=== PATIENT | male | born 1980 | race Caucasian/White ===

== ENCOUNTER 2017-10-18 18:45 | Observation (INO) | payer BC ==
[2017-10-18] MEDS ORDERED: ONDANSETRON 4 MG/2 ML VIAL ONE (19:38)
[2017-10-18] MEDS ORDERED: FENTANYL CITR 100 MCG/2 ML ONE (19:38)
[2017-10-18] MEDS ORDERED: Ringers Lactate 1,000 ML IV ONE (19:54)
[2017-10-18 20:09] LABS: Absolute Lymphocytes (CBC) 3.3 K/uL (0.7-4.9); Absolute Neutrophil 13.5 K/uL (1.8-8.0); Basophils % 0.2 % (0-1.3); Eosinophils % 1.3 % (0-4.4); Lymphocytes % 18.3 % (15.3-44.8); MCH 33.5 pg (27.0-35.0); MCV 98.7 fL (80-100); MPV 8.4 fL (7.6-11.3); Monocytes % 5.4 % (3.3-12.3); RBC Red Blood Cell Count 4.76 M/uL (4.33-5.43)
[2017-10-18 20:23] LABS: ALT/SGPT 46 U/L (12-78); AST/SGOT 30 U/L (15-37); Albumin 3.8 g/dL (3.4-5.0); Alkaline Phosphatase 98 U/L (45-117); BUN Blood Urea Nitrogen 11 mg/dL (7-18); Bicarbonate 21 mmol/L (21-32); Bilirubin Direct < 0.1 mg/dL (0-0.2); Bilirubin Total 0.3 mg/dL (0.2-1.0); Creatine Phosphokinase 57 U/L (39-308); Glucose Level 99 mg/dL (74-106); Lipase 214 U/L (73-393); Potassium 3.7 mmol/L (3.5-5.1); Protein, Total 7.8 g/dL (6.4-8.2); Sodium Level 137 mmol/L (136-145)
--- NOTE | 2017-10-18 22:11 | RAD REPORT ---
EXAM DESCRIPTION: CT - Abdomen Pelvis W Contrast - 10/18/2017 9:30 pm CLINICAL HISTORY: Right lower quadrant pain, left lower quadrant pain COMPARISON: None. TECHNIQUE: Biphasic, helical CT imaging of the abdomen and pelvis was performed following 100 ml non -ionic IV contrast. Oral contrast was given. All CT scans are performed using dose optimization technique as appropriate and may include automated exposure control or mA/KV adjustment according to patient size. FINDINGS: No suspicious findings in the lung bases. The liver, spleen, and pancreas show no suspicious findings. Gallbladder and biliary tree are also wi thout suspicious finding. Symmetric renal function is seen with no hydronephrosis or suspicious renal mass. No pyelonephritis o r acute renal parenchymal process. Partially filled urinary bladder shows no suspicious finding. No gastric dilatation or gastric wall thickening. No small bowel abnormality. No dilated colon or foc al colon wall thickening. The appendix is borderline at 8-9 mm. There is no air within the lumen and no appendicolith. No periappendiceal inflammatory stranding. Minimal diverticulosis is present withou t diverticulitis. No free air, free fluid or inflammatory stranding. No mass or bulky lymphadenopathy. A small fat o nly umbilical hernia present. Fat extends into the origin of the right inguinal canal. No adrenal abn ormality. No suspicious bony findings. IMPRESSION: Appendix is borderline at 8- 9 mm. No appendicolith or periappendiceal inflammatory stra nding. Acute appendicitis is unlikely ; however, correlation is needed with clinical presentation and laboratory findings. Patient can be monitored with follow-up imaging as warranted. No other acute GI finding. No acute abnormality.
--- NOTE | 2017-10-18 22:45 | EDPHYS ---
Physician Documentation [facility] Name: Jonathon Zamudio Age: 36 yrs Sex: Male : 1980 Arrival Date: 10/18/2017 Time: 18:49 Bed 19 Private MD: None, None ED Physician Donovan Reardon HPI: 10/18 22:41 This 36 yrs old Male presents to ER via Wheelchair with complaints of gs Abdominal Pain. 22:41 The patient presents with abdominal pain in the lower abdomen. Onset: The gs symptoms/episode began/occurred today. The symptoms do not radiate. Associated signs and symptoms: Pertinent positives: nausea, Pertinent negatives: diarrhea, vomiting. The symptoms are described as crampy. Modifying factors: The symptoms are alleviated by nothing, the symptoms are aggravated by alcohol. Severity of pain: At its worst the pain was severe in the emergency department the pain has improved markedly. The patient has experienced a previous episode. Historical: - Allergies: 19:06 No Known Allergies; tl2 - Home Meds: 19:06 None [Active]; tl2 - PMHx: 19:06 None; tl2 - PSHx: 19:06 Hernia repair; tl2 - Immunization history:: Adult Immunizations up to date. - Social history:: Smoking status: Patient uses tobacco products, smokes one pack cigarettes per day. - Ebola Screening: : No symptoms or risks identified at this time. ROS: 22:41 All other systems are negative. gs Exam: 22:41 Head/Face: Normocephalic, atraumatic. Eyes: Pupils equal round and reactive to light, gs extra-ocular motions intact. Lids and lashes normal. Conjunctiva and sclera are non-icteric and not injected. Cornea within normal limits. Periorbital areas with no swelling, redness, or edema. ENT: Nares patent. No nasal discharge, no septal abnormalities noted. Tympanic membranes are normal and external auditory canals are clear. Oropharynx with no redness, swelling, or masses, exudates, or evidence of obstruction, uvula midline. Mucous membranes moist. Neck: Trachea midline, no thyromegaly or masses palpated, and no cervical lymphadenopathy. Supple, full range of motion without nuchal rigidity, or vertebral point tenderness. No Meningismus. Chest/axilla: Normal chest wall appearance and motion. Nontender with no deformity. No lesions are appreciated. Cardiovascular: Regular rate and rhythm with a normal S1 and S2. No gallops, murmurs, or rubs. Normal PMI, no JVD. No pulse deficits. Respiratory: Lungs have equal breath sounds bilaterally, clear to auscultation and percussion. No rales, rhonchi or wheezes noted. No increased work of breathing, no retractions or nasal flaring. Back: No spinal tenderness. No costovertebral tenderness. Full range of motion. Male : Normal genitalia with no discharge or lesions. Skin: Warm, dry with normal turgor. Normal color with no rashes, no lesions, and no evidence of cellulitis. MS/ Extremity: Pulses equal, no cyanosis. Neurovascular intact. Full, normal range of motion. Neuro: Awake and alert, GCS 15, oriented to person, place, time, and situation. Cranial nerves II-XII grossly intact. Motor strength 5/5 in all extremities. Sensory grossly intact. Cerebellar exam normal. Normal gait. 22:41 Constitutional: The patient appears alert, awake, uncomfortable. 22:41 Abdomen/GI: Palpation: moderate abdominal tenderness, in the suprapubic area and right lower quadrant, rebound tenderness, is not appreciated. Vital Signs: 19:06 BP 113 / 73; Pulse 68; Resp 18; Temp 97.8(O); Pulse Ox 99% on R/A; Weight 99.79 kg; tl2 Height 6 ft. 3 in. (190.50 cm); Pain 8/10; 20:45 BP 130 / 86; Pulse 75; Resp 18; Pulse Ox 98% ; ea 21:31 BP 141 / 81; Pulse 81; Resp 18; Pulse Ox 99% ; ea 23:00 BP 126 / 83; Pulse 84; Resp 18; Pulse Ox 99% ; ea 10/19 00:30 BP 127 / 79; Pulse 80; Resp 18; Temp 98; Pulse Ox 99% ; Pain 0/10; ea 10/18 19:06 Body Mass Index 27.50 (99.79 kg, 190.50 cm) tl2 MDM: 10/18 19:16 Patient medically screened. gs 22:41 Differential diagnosis: appendicitis, bowel obstruction, non-specific abd pain, gs pancreatitis. Data reviewed: vital signs, nurses notes. Response to treatment: the patient's symptoms have mildly improved after treatment, and as a result, I will admit patient. Physician consultation: Miguel Hinkle MD and will see patient in inpatient room. 10/18 19:33 Order name: Basic Metabolic Panel; Complete Time: 22:14 10/18 19:33 Order name: CBC with Diff; Complete Time: 20:19 10/18 19:33 Order name: Hepatic Function; Complete Time: 22:14 10/18 19:33 Order name: Lipase; Complete Time: 22:14 10/18 19:33 Order name: Urine Microscopic Only 10/18 19:33 Order name: CPK; Complete Time: 22:14 10/18 19:33 Order name: CT Abd/Pelvis - W/Contrast; Complete Time: 22:14 10/18 22:51 Order name: Liver (Hepatic) Function EDMT 10/18 22:51 Order name: CBC with Automated Diff EDMT 10/18 22:51 Order name: CBC with Automated Diff EDMS 10/19 00:00 Order name: Urine Dipstick--Ancillary (enter results) 10/19 00:04 Order name: Urine Dipstick-Ancillary EDMT 10/18 19:33 Order name: IV Saline Lock; Complete Time: 19:54 10/18 19:33 Order name: Labs collected and sent; Complete Time: 19:54 10/18 19:33 Order name: Urine Dipstick-Ancillary (obtain specimen); Complete Time: 23:08 10/18 22:51 Order name: NPO EDMS Administered Medications: 19:43 Drug: fentaNYL (PF) 25 mcg Route: IVP; Site: right antecubital; ea 20:15 Follow up: Response: No adverse reaction; Pain is decreased ea 19:43 Drug: Zofran 4 mg Route: IVP; Site: right antecubital; ea 20:15 Follow up: Response: No adverse reaction ea 20:05 Drug: Lactated Ringers Solution 1000 ml Route: IV; Rate: 1000 bolus; Site: right ea antecubital; 22:30 Follow up: Response: No adverse reaction; IV Intake: 1000ml ea 21:13 Drug: fentaNYL (PF) 50 mcg Route: IVP; Site: right antecubital; ea 21:45 Follow up: Response: No adverse reaction; Pain is decreased ea 23:07 Drug: morphine 4 mg Route: IVP; Site: right antecubital; ea 10/19 00:00 Follow up: Response: No adverse reaction; Pain is decreased ea Disposition: 10/18/17 22:44 Hospitalization ordered by Miguel Hinkle for Observation. Preliminary diagnosis is Lower abdominal pain, unspecified. - Bed requested for Telemetry/MedSurg (observation). - Status is Observation. ea - Condition is Stable. - Problem is new. - Symptoms have improved. UTI on Admission? No Signatures: Dispatcher [employer] EDMS Ana Dixon RN RN Nikki Chapin RN RN tl2 Shanae Becerra RN RN Donovan Sandy MD MD gs Corrections: (The following items were deleted from the chart) 00:12 10/18 22:44 Hospitalization Ordered by Miguel Hinkle MD for Observation. Preliminary kl diagnosis is Lower abdominal pain, unspecified. Bed requested for Telemetry/MedSurg (observation). Status is Observation. Condition is Stable. Problem is new. Symptoms have improved. UTI on Admission? No. gs 10/19 00:46 00:12 10/18/2017 22:44 Hospitalization Ordered by Miguel Hinkle MD for Observation. ea Preliminary diagnosis is Lower abdominal pain, unspecified. Bed requested for Telemetry/MedSurg (observation). Status is Observation. Condition is Stable. Problem is new. Symptoms have improved. UTI on Admission? No. kl
--- NOTE | 2017-10-18 22:45 | ER ---
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 Denies vomiting or diarrhea. 19:05 Transition of care: patient was not received from another setting of care. Onset of tl2 symptoms was October 18, 2017 at 16:00. Risk Assessment: Do you want to hurt yourself or someone else? Patient reports no desire to harm self or others. Initial Sepsis Screen: Does the patient meet any 2 criteria? No. Patient's initial sepsis screen is negative. Does the patient have a suspected source of infection? No. Patient's initial sepsis screen is negative. Care prior to arrival: None. 19:05 Method Of Arrival: Wheelchair tl2 19:05 Acuity: ARIANE 3 tl2 Triage Assessment: 19:06 General: Appears in no apparent distress. uncomfortable, Behavior is cooperative, tl2 appropriate for age, anxious. Pain: Complains of pain in right lower quadrant and left lower quadrant Pain does not radiate. Pain currently is 8 out of 10 on a pain scale. Quality of pain is described as sharp, Is intermittent. Neuro: Level of Consciousness is awake, alert, obeys commands, Oriented to person, place, time, situation. Cardiovascular: Denies chest pain. Respiratory: Airway is patent Respiratory effort is even, unlabored, Respiratory pattern is regular, symmetrical. GI: Abdomen is non-distended, Patient currently denies diarrhea, vomiting. Historical: - Allergies: 19:06 No Known Allergies; tl2 - Home Meds: 19:06 None [Active]; tl2 - PMHx: 19:06 None; tl2 - PSHx: 19:06 Hernia repair; tl2 - Immunization history:: Adult Immunizations up to date. - Social history:: Smoking status: Patient uses tobacco products, smokes one pack cigarettes per day. - Ebola Screening: : No symptoms or risks identified at this time. Screenin:20 Abuse screen: Denies threats or abuse. Nutritional screening: No deficits noted. ea Tuberculosis screening: No symptoms or risk factors identified. Fall Risk None identified. Assessment: 19:19 General: Appears uncomfortable, Behavior is calm, cooperative, appropriate for age, ea Smells of alcohol. Pain: Complains of pain in right lower quadrant and left lower quadrant Pain currently is 7 out of 10 on a pain scale. Quality of pain is described as aching. Neuro: Level of Consciousness is awake, alert, obeys commands, Oriented to person, place, time, situation. Cardiovascular: Patient's skin is warm and dry. Respiratory: Airway is patent Respiratory effort is even, unlabored, Respiratory pattern is regular, symmetrical, Breath sounds are clear bilaterally. GI: Bowel sounds present X 4 quads. Abdomen is tender to palpation in right lower quadrant and left lower quadrant. : No signs and/or symptoms were reported regarding the genitourinary system. Derm: Skin is dry, Skin is flushed, Skin temperature is warm. Musculoskeletal: Circulation, motion, and sensation intact. 20:43 Reassessment: Patient and/or family updated on plan of care and expected duration. Pain ea level reassessed. Patient is alert, oriented x 3, equal unlabored respirations, skin warm/dry/pink. 21:00 Reassessment: Patient and/or family updated on plan of care and expected duration. Pain ea level reassessed. Patient is alert, oriented x 3, equal unlabored respirations, skin warm/dry/pink. 22:19 Reassessment: Patient and/or family updated on plan of care and expected duration. Pain ea level reassessed. Patient is alert, oriented x 3, equal unlabored respirations, skin warm/dry/pink. 23:13 Reassessment: Patient and/or family updated on plan of care and expected duration. Pain ea level reassessed. Patient is alert, oriented x 3, equal unlabored respirations, skin warm/dry/pink. 10/19 00:34 Reassessment: Patient and/or family updated on plan of care and expected duration. Pain ea level reassessed. Patient is alert, oriented x 3, equal unlabored respirations, skin warm/dry/pink. Report called to Receiving nurse. Vital Signs: 10/18 19:06 BP 113 / 73; Pulse 68; Resp 18; Temp 97.8(O); Pulse Ox 99% on R/A; Weight 99.79 kg; tl2 Height 6 ft. 3 in. (190.50 cm); Pain 8/10; 20:45 BP 130 / 86; Pulse 75; Resp 18; Pulse Ox 98% ; ea 21:31 BP 141 / 81; Pulse 81; Resp 18; Pulse Ox 99% ; ea 23:00 BP 126 / 83; Pulse 84; Resp 18; Pulse Ox 99% ; ea 10/19 00:30 BP 127 / 79; Pulse 80; Resp 18; Temp 98; Pulse Ox 99% ; Pain 0/10; ea 10/18 19:06 Body Mass Index 27.50 (99.79 kg, 190.50 cm) tl2 ED Course: 10/18 18:49 Patient arrived in ED. mr 18:49 None, None is Private Physician. mr 19:02 Shanae Becerra, RN is Primary Nurse. ea 19:06 Triage completed. tl2 19:06 Arm band placed on right wrist. tl2 19:07 Donovan Reardon MD is Attending Physician. gs 19:08 Patient has correct armband on for positive identification. Bed in low position. Call tl2 light in reach. Side rails up X 1. Adult w/ patient. 21:[address] via wheelchair. nj 21:30 CT Abd/Pelvis - W/Contrast In Process Unspecified. EDMS 22:44 Miguel Hinkle MD is Hospitalizing Provider. 10/19 00:33 No provider procedures requiring assistance completed. Patient admitted, IV remains in ea place. Administered Medications: 10/18 19:43 Drug: fentaNYL (PF) 25 mcg Route: IVP; Site: right antecubital; ea 20:15 Follow up: Response: No adverse reaction; Pain is decreased ea 19:43 Drug: Zofran 4 mg Route: IVP; Site: right antecubital; ea 20:15 Follow up: Response: No adverse reaction ea 20:05 Drug: Lactated Ringers Solution 1000 ml Route: IV; Rate: 1000 bolus; Site: right ea antecubital; 22:30 Follow up: Response: No adverse reaction; IV Intake: 1000ml ea 21:13 Drug: fentaNYL (PF) 50 mcg Route: IVP; Site: right antecubital; ea 21:45 Follow up: Response: No adverse reaction; Pain is decreased ea 23:07 Drug: morphine 4 mg Route: IVP; Site: right antecubital; ea 10/19 00:00 Follow up: Response: No adverse reaction; Pain is decreased ea Intake: 10/18 22:30 IV: 1000ml; Total: 1000ml. ea Outcome: 22:44 Decision to Hospitalize by Provider. 10/19 00:34 Instructed on the need for admit. ea 00:37 Admitted to Med/surg accompanied by tech, room 407, Report called to Receiving nurse ea on fourth floor. 00:37 Condition: stable 00:46 Patient left the ED. ea Signatures: Dispatcher [employer] EDWV Karin Brooks Taylor RN RN tl2 Mariano Braun Elena, RN RN Donovan Sandy MD MD
[2017-10-18] MEDS ORDERED: MORPHINE 4 MG/ML SYR IV PRN (22:47)
[2017-10-18] MEDS ORDERED: ACETAMINOPHEN 500 MG TAB PO PRN (22:47)
[2017-10-18] MEDS ORDERED: ONDANSETRON 4 MG/2 ML VIAL IV PRN (22:47)
[2017-10-18] MEDS: D5 0.45 NS 1,000 ML IV SCH (23:00)
[2017-10-19 00:04] LABS: Urine Blood TRACE (NEG); Urine Glucose NEGATIVE (NEG); Urine Protein NEGATIVE (NEG); Urine pH 6.5 (5.0-7.0)
[2017-10-19 00:48] LABS: Urine Bacteria <20 /HPF (NONE SEEN); Urine Culture Reflex Order NOT NEEDED; Urine RBC NONE SEEN /HPF (NONE SEEN)
[2017-10-19 00:55] LABS: Albumin 3.6 g/dL (3.4-5.0); Bilirubin Direct 0.1 mg/dL (0-0.2); Bilirubin Total 0.5 mg/dL (0.2-1.0); Protein, Total 7.1 g/dL (6.4-8.2)
[2017-10-19 01:12] VITALS: BMI 27.6
[2017-10-19] MEDS: D5 0.45 NS 1,000 ML IV SCH ×2 (01:12→06:05)
[2017-10-19] MEDS ORDERED: CEFOXITIN SODIUM 2 GM/VIAL ONE (01:17)
[2017-10-19] MEDS ORDERED: NA CHLORIDE 0.9% 200 ML ONE (01:23)
[2017-10-19 01:44] VITALS: O2SAT 100
[2017-10-19 04:42] LABS: Absolute Lymphocytes (CBC) 4.4 K/uL (0.7-4.9); Absolute Monocytes 1.2 K/uL (0.1-1.3); Absolute Neutrophil 9.1 K/uL (1.8-8.0); Basophils % 0.6 % (0-1.3); Eosinophils % 1.7 % (0-4.4); Hematocrit 43.5 % (39.6-49.0); Lymphocytes % 29.2 % (15.3-44.8); MCH 33.5 pg (27.0-35.0); MCV 96.3 fL (80-100); MPV 8.5 fL (7.6-11.3); RBC Red Blood Cell Count 4.51 M/uL (4.33-5.43)
[2017-10-19] MEDS: CEFOXITIN 1 GM in NA CHLORIDE 0.9% 100 ML IVPB SCH ×3 (06:00)
[2017-10-19 08:28] VITALS: BP 129/60; TEMP 97.7
[2017-10-19] MEDS ORDERED: CEFOXITIN/SWI 1gm 1 GM/10 ML SYR IV SCH (12:00)
--- NOTE | 2017-10-19 16:41 | HP ---
Date of Admission: 10/18/2017 Brief History Of Present Illness: The patient is a 36-year-old man, who presents to the [facility] with approximately 1-day history of vague periumbilical abdominal pain. He states that the pa in was sharp, stabbing, and located primarily in the periumbilical region with some minimal movement to the right side of the periumbilical region, but no radiation to the right lower quadrant. He wai tionally had some radiation to the left lower quadrant as well in a belt-like distribution. He had s ome nausea. No vomiting. No change in bowel or bladder habits. No diarrhea. No recent food exposu res. No travel outside the country and no sick contacts he is aware of. He states that the pain cam e on and then initially went away. He went and drank a few beers and the pain got significantly wors e. He says, he stated, he had some lightheadedness and felt pale and drawn at that time and as such he had decided to come to the emergency room with the above-stated complaints. Past Medical History: Negative. Past Surgical History: He has had a lumbar surgery, diskectomy, and laminectomy, and he has had a le ft inguinal hernia repair x2. Allergies: NO KNOWN DRUG ALLERGIES. Medications: None. Social History: He has a 20+ pack-year smoking history. He drinks a case of beer a week. He denies recreational drug use. Review of Systems: A 10-point review of systems other than HPI, denies. Currently, he is completely pain-free and his s ymptoms have completely resolved by his description. He has had no fever, no chills, no other compla ints. Physical Examination: Vital Signs: At the time of my examination, his BMI is 27.6. His vital signs are a blood pressure o f 106/58, pulse is 70, respiratory rate 20, temperature 97.2. General: He is awake, alert, oriented. Psychiatric: He is appropriate, conversive. HEENT: Normocephalic. Sclerae anicteric. Mucous members moist. Oropharynx clear. Neck: Supple. No JVD. Chest: Normal expansion and excursion. Cardiovascular: Regular rate and rhythm. Pulmonary: Clear to auscultation bilaterally. Abdomen: Soft with no tenderness. No rebound. No guarding. No focal peritonitis. Negative psoas sign. He essentially has a benign abdominal exam at this time with no acute findings. Extremities: No clubbing, cyanosis, or edema. Skin: Warm and dry. Laboratory Data: Reveals a white blood cell count of 15.1 down from 18.0. On admission, his hemoglo bin 15.1 over hematocrit of 43.5, platelet count is 230. His neutrophils are normal at 60.5 today. His lytes were reviewed on admission and did not have any outstanding concerning findings. He had a CT scan performed of the abdomen and pelvis on admission which was officially read as, appendix is cl rderline at 8 to 9 mm. No appendicolith or periappendiceal inflammatory stranding. Acute appendicit is is unlikely; however, correlation with clinical presentation and laboratory findings. No acute ot her or GI findings. Assessment And Plan: This is a 36-year-old male who presents with signs and symptoms of possible ear ly acute appendicitis. 1.IV fluid hydration. 2.N.p.o. status. 3.Antibiotic coverage with Levaquin and Flagyl. 4.I have explained the risks, benefits, and alternatives of a laparoscopic, possible open appendecto my including but not limited to bleeding, infection, damage to the surrounding tissue, need for furth er operating procedures. The patient was asked if there are additional options. We have instructed him that antibiotics are an option and as such he has chosen to do antibiotic and nonoperative manage ment as he states he has a family member, I believe grandfather/uncle, he needs to see before he perh aps will pass away, and as such he does not wish surgical intervention and stating as he has no sympt oms whatsoever at this point is completely pain-free. He would like to continue the antibiotic. The refore, I have decided to give him 7 days of antibiotics and no pain medication so that should his sy mptoms resume, he has been instructed to seek an emergency room and surgical intervention as soon as possible, and call [phone] if necessary. The patient displayed understanding of above stated plan and agrees to proceed as indicated. CARLI/CHAN Voice ID: [id number]
== END 2017-10-19 08:56 | disposition home or self-care (01) ==
LOC: ER 18:45 → ERHOLD 23:31 → 4TH 10-19 00:19
PROVIDERS: ADMIT Surgery; ATTEND Surgery
DX: R10.9 Unspecified abdominal pain (principal); F17.210 Nicotine dependence, cigarettes, uncomplicated
CPT/HCPCS: 36415; 74177; 80048; 80076; 81003; 81015; 82550; 83690; 85025; 96374; 96375; 99285; G0378; J0694; J2405; J3010; Q9967

== ENCOUNTER 2018-11-17 17:35 | Observation (INO) | payer BC ==
[2018-11-17] MEDS ORDERED: ONDANSETRON 4 MG/2 ML VIAL ONE (17:49)
[2018-11-17] MEDS ORDERED: NA CHLORIDE 0.9% 1,000 ML ONE (17:49)
[2018-11-17] MEDS ORDERED: MORPHINE 4 MG/ML SYR ONE ×3 (17:49→21:01)
[2018-11-17 18:58] LABS: Absolute Lymphocytes (CBC) 3.7 K/uL (0.7-4.9); Basophils % 0.6 % (0-1.3); Hematocrit 43.6 % (39.6-49.0); Lymphocytes % 20.4 % (15.3-44.8); MPV 8.6 fL (7.6-11.3); RBC Red Blood Cell Count 4.47 M/uL (4.33-5.43)
[2018-11-17 19:16] LABS: ALT/SGPT 38 U/L (12-78); AST/SGOT 23 U/L (15-37); Albumin 3.6 g/dL (3.4-5.0); Alkaline Phosphatase 94 U/L (45-117); BUN Blood Urea Nitrogen 12 mg/dL (7-18); Bicarbonate 21 mmol/L (21-32); Bilirubin Direct < 0.1 mg/dL (0-0.2); Bilirubin Total 0.3 mg/dL (0.2-1.0); Glucose Level 104 mg/dL (74-106); Lipase 313 U/L (73-393); Protein, Total 6.5 g/dL (6.4-8.2); Sodium Level 138 mmol/L (136-145)
[2018-11-17 19:39] LABS: Urine Blood NEGATIVE (NEG); Urine Glucose NEGATIVE (NEG); Urine Protein NEGATIVE (NEG); Urine Specific Gravity 1.015 (1.005-1.030); Urine pH 5.5 (5.0-7.0)
--- NOTE | 2018-11-17 19:55 | RAD REPORT ---
EXAM DESCRIPTION: CT - Abdomen Pelvis W Contrast - 11/17/2018 7:36 pm CLINICAL HISTORY: RLQ PAINprior history of appendicitis treated with antibiotic therapy COMPARISON: September 2017 TECHNIQUE: Biphasic, helical CT imaging of the abdomen and pelvis was performed following 100 ml non -ionic IV contrast. No oral contrast administered. All CT scans are performed using dose optimization technique as appropriate and may include automated exposure control or mA/KV adjustment according to patient size. FINDINGS: No suspicious findings in the lung bases. The liver, spleen, and pancreas show no suspicious findings. Gallbladder and biliary tree are also wi thout suspicious finding. Symmetric renal function is seen with no hydronephrosis or suspicious renal mass. No pyelonephritis o r acute parenchymal process. No bladder abnormalities. No adrenal abnormalities. No gastric dilatation or gastric wall thickening. No dilated small bowel loops. Patient has minimal s igmoid diverticulosis without diverticulitis. No colon wall thickening or mass. No thickening at the tip of the cecum. The appendix is 9 mm in diameter. [place] of the appendix appear mildly prominent. Th e appendix appears the same as seen on the September 2017 study. No periappendiceal stranding. No append icolith. No free air, free fluid or inflammatory stranding. No mass or bulky lymphadenopathy. Minimal fat o nly umbilical hernia present. Fat extends into the right inguinal canal similar to the prior study. No congestion or edema in this small or early hernia. No suspicious bony findings. IMPRESSION: The appendix is 9 mm which is slightly enlarged and the [place] are mildly prominent. Ther e is no surrounding inflammatory stranding. The appearance of the appendix matches the September 2017 [address]y. As noted as well on the prior study, acute appendicitis is unlikely, even more so given the matching appearance to the study 1 year earlier. It would be an unusual that a recurrent appendicitis would alvarenga ve the same appearance. Correlation is needed with any clinical or laboratory findings of appendicitis. No other right lower quadrant abnormality. No other abnormality seen to explain right lower quadrant pain.
[2018-11-17] MEDS ORDERED: PIPER/TAZO/NS 3.375gm 3.375 GM/100 ML BAG ONE (20:27)
--- NOTE | 2018-11-17 20:31 | ER ---
Nurse's Notes [facility] Name: Jonathon Zamudio Age: 38 yrs Sex: Male : 1980 Arrival Date: 11/17/2018 Time: 17:37 Bed 23 Private MD: Diagnosis: Acute appendicitis Presentation: 11/17 17:37 Presenting complaint: Patient states: severe abd pain, started this morning but got la1 much worse in the last couple hours, had appendicitis last year but opted to try abx. Transition of care: patient was not received from another setting of care. Onset of symptoms was November 17, 2018. Risk Assessment: Do you want to hurt yourself or someone else? Patient reports no desire to harm self or others. Initial Sepsis Screen: Does the patient meet any 2 criteria? No. Patient's initial sepsis screen is negative. Does the patient have a suspected source of infection? No. Patient's initial sepsis screen is negative. Care prior to arrival: None. 17:37 Method Of Arrival: Ambulatory la1 17:37 Acuity: ARIANE 2 la1 Historical: - Allergies: 17:38 No Known Allergies; la1 - PMHx: 17:38 None; la1 - PSHx: 17:38 Hernia repair; la1 - Immunization history:: Adult Immunizations up to date. - Social history:: Smoking status: Patient uses tobacco products, smokes one pack cigarettes per day. - Ebola Screening: : No symptoms or risks identified at this time. Screenin:57 Abuse screen: Denies threats or abuse. Denies injuries from another. Nutritional mg2 screening: No deficits noted. Tuberculosis screening: No symptoms or risk factors identified. Fall Risk IV access (20 points). Assessment: 17:50 General: Appears uncomfortable, Behavior is cooperative, restless. mg2 17:50 Pain: Complains of pain in abdomen Pain does not radiate. Pain currently is 8 out of 10 mg2 on a pain scale. Neuro: Level of Consciousness is awake, alert, obeys commands, Oriented to person, place, time, situation. Cardiovascular: Capillary refill < 3 seconds Patient's skin is warm and dry. Respiratory: Airway is patent Respiratory effort is even, unlabored, Respiratory pattern is regular, symmetrical. GI: Bowel sounds present X 4 quads. Abdomen is tender to palpation in right lower quadrant. : No signs and/or symptoms were reported regarding the genitourinary system. EENT: No signs and/or symptoms were reported regarding the EENT system. Derm: Skin is intact, is healthy with good turgor, Skin is pink, warm \T\ dry. normal. Musculoskeletal: Circulation, motion, and sensation intact. Capillary refill < 3 seconds. 17:56 Reassessment: patient completed drinking the contrast. it infrastructure specialist informed. mg2 19:04 Reassessment: patient complained of abdominal pain. provider informed and ordered mg2 another dose of pain medicine. 19:34 Reassessment: patient sent to ct scan via wheelchair. mg2 20:02 Reassessment: Patient states feeling better. mg2 Vital Signs: 17:38 BP 131 / 91; Pulse 95; Resp 16; Temp 98.1; Pulse Ox 100% on R/A; Weight 99.79 kg; la1 Height 6 ft. 3 in. (190.50 cm); 19:05 BP 127 / 87; Pulse 87; Resp 18; Pulse Ox 98% on R/A; mg2 20:02 BP 125 / 80; Pulse 76; Resp 18; Pulse Ox 96% on R/A; mg2 17:38 Body Mass Index 27.50 (99.79 kg, 190.50 cm) la1 ED Course: 17:37 Patient arrived in ED. la1 17:37 Triage completed. la1 17:38 Arm band placed on right wrist. la1 17:39 Merlin Caruso NP is PHCP. pm1 17:40 Davida Stephens MD is Attending Physician. pm1 17:41 Caleb Aaron RN is Primary Nurse. mg2 17:46 No provider procedures requiring assistance completed. Inserted saline lock: 20 gauge mg2 in right antecubital area, using aseptic technique. Blood collected. 17:59 Patient has correct armband on for positive identification. Pulse ox on. NIBP on. Door mg2 closed. Warm blanket given. 19:37 CT completed. Patient tolerated procedure well. Patient moved back from CT. mw3 19:39 CT Abd/Pelvis - PO and IV Contrast In Process Unspecified. EDMS 20:29 Rajeev Aguilar MD is Hospitalizing Provider. pm1 21:49 Patient admitted, IV remains in place. mg2 Administered Medications: 17:54 Drug: NS 0.9% 1000 ml Route: IV; Rate: 1000 ml; Site: right antecubital; mg2 19:00 Follow up: Response: No adverse reaction; IV Status: Completed infusion; IV Intake: mg2 1000ml 17:55 Drug: morphine 4 mg Route: IVP; Site: right antecubital; mg2 18:25 Follow up: Response: No adverse reaction; Marked relief of symptoms mg2 17:55 Drug: Zofran 4 mg Route: IVP; Site: right antecubital; mg2 18:25 Follow up: Response: No adverse reaction; Marked relief of symptoms mg2 18:52 Drug: morphine 4 mg Route: IVP; Site: right antecubital; mg2 19:15 Follow up: Response: No adverse reaction; Marked relief of symptoms mg2 20:49 Drug: Zosyn 3.375 grams Route: IVPB; Infused Over: 60 mins; Site: right antecubital; mg2 21:15 Follow up: Response: No adverse reaction; IV Status: Completed infusion mg2 21:06 Drug: morphine 4 mg Route: IVP; Site: right antecubital; mg2 21:30 Follow up: Response: No adverse reaction; Marked relief of symptoms mg2 21:07 Drug: D5-1/2 NS 1000 ml Route: IV; Rate: 125 ml/hr; Site: right antecubital; mg2 21:45 Follow up: Response: No adverse reaction; IV Status: Infusion continued upon admission mg2 Intake: 19:00 IV: 1000ml; Total: 1000ml. mg2 Outcome: 20:30 Decision to Hospitalize by Provider. pm1 21:49 Admitted to Tele accompanied by tech, via wheelchair, room 409, with chart, Report mg2 called to MARTY Hernandez 21:49 Condition: stable 21:49 Instructed on the need for admit, Demonstrated understanding of instructions. 21:50 Patient left the ED. mg2 Signatures: Dispatcher [employer] EDMS Eduardo Gamez RN RN la1 Merlin Caruso, MAKAYLA SENIOR CLINICAL PROJECT MANAGER pm1 Caleb Aaron RN RN mg2 Roxane Agarwal mw3
--- NOTE | 2018-11-17 20:32 | EDPHYS ---
Physician Documentation [facility] Name: Jonathon Zamudio Age: 38 yrs Sex: Male : 1980 Arrival Date: 11/17/2018 Time: 17:37 Bed 23 Private MD: ED Physician Davida Stephens HPI: 11/17 18:00 This 38 yrs old Male presents to ER via Ambulatory with complaints of pm1 Abdominal Pain. 18:00 The patient presents with abdominal pain right lower quadrant. Onset: The pm1 symptoms/episode began/occurred today. The symptoms do not radiate. Associated signs and symptoms: Pertinent negatives: nausea, vomiting, and diarrhea, chest pain, dysuria, fever, shortness of breath, testicular pain. The symptoms are described as sharp. Modifying factors: The symptoms are alleviated by nothing, the symptoms are aggravated by movement, walking. Severity of pain: in the emergency department the pain is actually worse. The patient has experienced a previous episode, approximately 1 years ago, and the symptoms today are exactly the same, but worse. Was admitted for appendicitis but had to leave prior to surgery recommended by Dr. Hinkle to see his dying grandfather. Was given antibiotics and the patient did not have any abdominal pain until today . The patient has not recently seen a physician. Historical: - Allergies: 17:38 No Known Allergies; la1 - PMHx: 17:38 None; la1 - PSHx: 17:38 Hernia repair; la1 - Immunization history:: Adult Immunizations up to date. - Social history:: Smoking status: Patient uses tobacco products, smokes one pack cigarettes per day. - Ebola Screening: : No symptoms or risks identified at this time. ROS: 18:00 Constitutional: Negative for fever, chills, and weight loss, Eyes: Negative for injury, pm1 pain, redness, and discharge, ENT: Negative for injury, pain, and discharge, Neck: Negative for injury, pain, and swelling, Cardiovascular: Negative for chest pain, palpitations, and edema, Respiratory: Negative for shortness of breath, cough, wheezing, and pleuritic chest pain. 18:00 Back: Negative for injury and pain, : Negative for injury, bleeding, discharge, and swelling, MS/Extremity: Negative for injury and deformity, Skin: Negative for injury, rash, and discoloration, Neuro: Negative for headache, weakness, numbness, tingling, and seizure. 18:00 Abdomen/GI: Positive for abdominal pain, of the right lower quadrant, Negative for nausea, vomiting, and diarrhea. Exam: 18:00 Constitutional: This is a well developed, well nourished patient who is awake, alert, pm1 and in no acute distress. Head/Face: Normocephalic, atraumatic. Neck: Trachea midline, no thyromegaly or masses palpated, and no cervical lymphadenopathy. Supple, full range of motion without nuchal rigidity, or vertebral point tenderness. No Meningismus. Chest/axilla: Normal chest wall appearance and motion. Nontender with no deformity. No lesions are appreciated. Cardiovascular: Regular rate and rhythm with a normal S1 and S2. No gallops, murmurs, or rubs. Normal PMI, no JVD. No pulse deficits. Respiratory: Lungs have equal breath sounds bilaterally, clear to auscultation and percussion. No rales, rhonchi or wheezes noted. No increased work of breathing, no retractions or nasal flaring. 18:00 Back: No spinal tenderness. No costovertebral tenderness. Full range of motion. Skin: Warm, dry with normal turgor. Normal color with no rashes, no lesions, and no evidence of cellulitis. MS/ Extremity: Pulses equal, no cyanosis. Neurovascular intact. Full, normal range of motion. 18:00 Abdomen/GI: Inspection: abdomen appears normal, Bowel sounds: normal, Palpation: soft, moderate abdominal tenderness, in the right lower quadrant, mass, is not appreciated, rebound tenderness, is not appreciated. 18:00 Neuro: Orientation: is normal, Motor: is normal, moves all fours. Vital Signs: 17:38 BP 131 / 91; Pulse 95; Resp 16; Temp 98.1; Pulse Ox 100% on R/A; Weight 99.79 kg; la1 Height 6 ft. 3 in. (190.50 cm); 19:05 BP 127 / 87; Pulse 87; Resp 18; Pulse Ox 98% on R/A; mg2 20:02 BP 125 / 80; Pulse 76; Resp 18; Pulse Ox 96% on R/A; mg2 17:38 Body Mass Index 27.50 (99.79 kg, 190.50 cm) la1 MDM: 17:40 Patient medically screened. pm1 20:20 Counseling: I had a detailed discussion with the patient and/or guardian regarding: the pm1 historical points, exam findings, and any diagnostic results supporting the discharge/admit diagnosis, lab results, radiology results, the need for further work-up and treatment in the hospital. 20:28 Data reviewed: vital signs. Data interpreted: Pulse oximetry: on room air is 96 %. pm1 Interpretation: normal. 20:28 Physician consultation: Rajeev Aguilar MD was called at 20:28, was contacted at 20:28, pm1 regarding admission, patient's condition, and will see patient tomorrow, admit to his service, NPO, antibiotics, IV fluids, pain medications. 11/17 17:40 Order name: Basic Metabolic Panel; Complete Time: 19:58 pm1 11/17 17:40 Order name: CBC with Diff; Complete Time: 19:04 pm1 11/17 17:40 Order name: Creatinine for Radiology; Complete Time: 18:51 pm1 11/17 17:40 Order name: Hepatic Function; Complete Time: 19:58 pm1 11/17 17:40 Order name: Lipase; Complete Time: 19:58 pm1 11/17 18:57 Order name: Urine Dipstick--Ancillary (enter results); Complete Time: 19:58 ms 11/17 17:44 Order name: CT Abd/Pelvis - PO and IV Contrast; Complete Time: 20:37 pm1 11/17 17:40 Order name: IV Saline Lock; Complete Time: 17:46 pm1 11/17 17:40 Order name: Labs collected and sent; Complete Time: 17:46 pm1 11/17 18:08 Order name: Labs - recollect needed; Complete Time: 18:24 ms 11/17 20:36 Order name: NPO; Complete Time: 20:50 pm1 Administered Medications: 17:54 Drug: NS 0.9% 1000 ml Route: IV; Rate: 1000 ml; Site: right antecubital; mg2 19:00 Follow up: Response: No adverse reaction; IV Status: Completed infusion; IV Intake: mg2 1000ml 17:55 Drug: morphine 4 mg Route: IVP; Site: right antecubital; mg2 18:25 Follow up: Response: No adverse reaction; Marked relief of symptoms mg2 17:55 Drug: Zofran 4 mg Route: IVP; Site: right antecubital; mg2 18:25 Follow up: Response: No adverse reaction; Marked relief of symptoms mg2 18:52 Drug: morphine 4 mg Route: IVP; Site: right antecubital; mg2 19:15 Follow up: Response: No adverse reaction; Marked relief of symptoms mg2 20:49 Drug: Zosyn 3.375 grams Route: IVPB; Infused Over: 60 mins; Site: right antecubital; mg2 21:15 Follow up: Response: No adverse reaction; IV Status: Completed infusion mg2 21:06 Drug: morphine 4 mg Route: IVP; Site: right antecubital; mg2 21:30 Follow up: Response: No adverse reaction; Marked relief of symptoms mg2 21:07 Drug: D5-1/2 NS 1000 ml Route: IV; Rate: 125 ml/hr; Site: right antecubital; mg2 21:45 Follow up: Response: No adverse reaction; IV Status: Infusion continued upon admission mg2 Disposition: 11/17/18 20:30 Hospitalization ordered by Rajeev Aguilar for Observation. Preliminary diagnosis is Acute appendicitis. - Bed requested for Telemetry/MedSurg (observation). - Status is Observation. mg2 - Condition is Stable. - Problem is new. - Symptoms have improved. UTI on Admission? No Addendum: 11/25/2018 15:36 Co-signature as Attending Physician, Davida Stephens MD. m a2 Signatures: Dispatcher [employer] EDMS Karin Morrison ms, Audri, RN RN aa5 Eduardo Gamez RN RN la1 Garcia, Cindy, RN RN Merlin Caruso, WHEEL PRESS OPERATOR WHEEL PRESS OPERATOR pm1 Davida Stephens MD MD ma2 Caleb Aaron RN RN mg2 Corrections: (The following items were deleted from the chart) 11/17 21:04 20:30 Hospitalization Ordered by Rajeev Aguilar MD for Observation. Preliminary cg diagnosis is Acute appendicitis. Bed requested for Telemetry/MedSurg (observation). Status is Observation. Condition is Stable. Problem is new. Symptoms have improved. UTI on Admission? No. pm1 21:50 21:04 11/17/2018 20:30 Hospitalization Ordered by Rajeev Aguilar MD for Observation. mg2 Preliminary diagnosis is Acute appendicitis. Bed requested for Telemetry/MedSurg (observation). Status is Observation. Condition is Stable. Problem is new. Symptoms have improved. UTI on Admission? No. cg
[2018-11-17] MEDS ORDERED: D5 0.45 NS 500 ML IV ONE (21:01)
[2018-11-17] MEDS ORDERED: ONDANSETRON 4 MG/2 ML VIAL IV PRN (21:57)
[2018-11-17] MEDS ORDERED: MORPHINE 4 MG/ML SYR IV PRN (21:57)
[2018-11-17 21:59] VITALS: BMI 27.5
[2018-11-17] MEDS: D5 0.45 NS 1,000 ML IV SCH (22:18)
[2018-11-17] MEDS ORDERED: MORPHINE 4 MG/ML SYR IV ONE (23:23)
[2018-11-18] MEDS ORDERED: PROMETHAZINE 25 MG/ML VIAL IV PRN (00:24)
--- NOTE | 2018-11-18 00:26 | P.HP ---
Date of Service: 11/17/18 PC: This 38-year-old male presents emergency room with severe right lower quadrant abdominal pain for diagnosis and treatment. HPC: Patient noticed over this morning he was having some periumbilical pain. Was at home during the afternoon watching football. This evening the pain is migrated down into the right lower quadrant causing him intense pain in discomfort. Patient is similar episode to this last year. Was gently brought the operating room for appendectomy what had a family emergency and was discharged. He did not follow-up and has been relatively pain free since then. Once again is a similar type pain located in the same area. PMH: Negative PSHx: Negative SOC: No known allergies, smokes a pack a day SYS REVIEW: No cough, wheeze, shortness of breath. No chest pain or palpitations. No urinary complaints. States she is otherwise in good health O/E awake alert vital signs are stable HEENT: Not jaundiced Chest: Air entry equal bilaterally ABD: Patient is guarding and has rebound in the right lower quadrant LOCO: Intact DATA: Elevated white cell count, CT scan shows a thickened appendix however no obvious acute appendicitis IMPRESSION: Acute abdomen PLAN: I will take him to the operating room tomorrow for laparoscopy and probable appendectomy. The risks of this procedure have been discussed. The possibility of bleeding, infection, injury to bowel and blood vessels has been described. The possibility of finding a normal appendix (which we will remove) was explained. Bleeding, infection, abscess formation nerve injury and other unforeseen complications were explained. He understands and wants to proceed
[2018-11-18] MEDS ORDERED: PIPERACIL/TAZO 3.375 GM VIAL IV ONE (02:29)
[2018-11-18] MEDS ORDERED: NA CHLORIDE 0.9% 100 ML IV ONE (02:31)
[2018-11-18] MEDS: PIPER/TAZO/NS 3.375gm 3.375 GM/100 ML BAG IVPB SCH ×4 (02:50→18:11)
[2018-11-18] MEDS: MORPHINE 4 MG/ML SYR IV PRN ×5 (03:46→21:14)
[2018-11-18] MEDS: NICOTINE 21 MG/PAT TD SCH (03:46)
[2018-11-18] MEDS: D5 0.45 NS 1,000 ML IV SCH ×3 (05:57→14:04)
[2018-11-18 06:41] LABS: Urine Appearance CLEAR; Urine Bilirubin NEGATIVE (NEG); Urine Blood NEGATIVE (NEG); Urine Color YELLOW; Urine Glucose NEGATIVE (NEG); Urine Protein NEGATIVE (NEG); Urine Urobilinogen 0.2 mg/dL (0.2-1.0); Urine pH 5.5 (5.0-7.0)
[2018-11-18 06:47] LABS: Urine Microscopic Reflex NO UMIC
[2018-11-18] MEDS ORDERED: MIDAZOLAM HCL 2 MG/2 ML INJ ONE (08:13)
[2018-11-18] MEDS ORDERED: GLYCOPYRROLATE 0.2 MG/ML SYR ONE ×2 (08:13)
[2018-11-18] MEDS ORDERED: PROPOFOL 200 MG/20 ML VIAL IV ONE (08:13)
[2018-11-18] MEDS ORDERED: LIDOCAINE 2% MPF 5 ML VIAL ONE (08:13)
[2018-11-18] MEDS ORDERED: ONDANSETRON 4 MG/2 ML VIAL ONE (08:14)
[2018-11-18] MEDS ORDERED: NEOSTIGMINE 1 MG/ML -10 ML VIAL ONE (08:14)
[2018-11-18] MEDS ORDERED: ROCURONIUM 50 MG/5 ML VIAL IV ONE (08:14)
[2018-11-18] MEDS ORDERED: FENTANYL CITR 100 MCG/2 ML ONE (08:19)
[2018-11-18] MEDS ORDERED: Ringers Lactate 1,000 ML IV ONE (08:31)
[2018-11-18] MEDS ORDERED: PIPER/TAZO/NS 3.375gm 3.375 GM/100 ML BAG IVPB SCH (09:00)
[2018-11-18] MEDS ORDERED: KETOROLAC 30 MG/ML INJ ONE (09:25)
[2018-11-18] MEDS ORDERED: MORPHINE 10 MG/ML VIAL ONE (09:27)
[2018-11-18] MEDS ORDERED: dexAMETHasone 10 MG/ML VIAL ONE (10:11)
[2018-11-18] MEDS ORDERED: MEPERIDINE HCL 25 MG/0.5 ML ONE (10:17)
--- NOTE | 2018-11-18 10:21 | P.OP ---
Preoperative diagnosis: Acute abdomen Postoperative diagnosis: The same Primary procedure: Laparoscopic appendectomy Anesthesia: General Estimated blood loss: Less than 10 cc Specimen: 1 appendix Operative Technique: The patient brought the operating room and placed supine on the table. After the induction of adequate general endotracheal anesthesia, the area of the abdomen was prepped with a DuraPrep solution, and he was draped in usual aseptic manner. A subumbilical incision was made. This brought down through the skin and subcutaneous tissue. The Visiport was now used to enter the peritoneal cavity and created pneumoperitoneum to approximately 12 mm of mercury. Under direct vision a 5 mm trocar was placed in the right upper quadrant, and another in the lower midline. The patient was now placed in reverse Trendelenburg and rolled to the left cyst. We could visualize the right lower quadrant. With the cecum was identified. There is no inflammatory process involving this. It is however quite mobile. The appendix was identified. It was noted to be mildly hyperemic and congested. The mesentery the appendix was grasped. On inspection of the junction of the cecum with the appendix was noted be some fibrinous scar tissue over this area. This was released. The base the appendix was now identified. Introducing the linear Stapler into the peritoneal cavity at the umbilicus allowed us to place across the base of the appendix at its junction with the cecum. The instrument was fired. A vascular reload was used to take down the blood supply to the appendix. This pus was now placed into the Endo-Catch and brought out through the umbilical trocar site. At this point the and abdomen was inspected to ensure adequate hemostasis. The right lower quadrant was gently irrigated and the irrigating fluid was aspirated. The anterior abdominal wall was blocked using a Jun block and 0.25% Marcaine. The umbilical trocar site was now approximated using the Endo Close an absorbable suture. 2 sutures were used to close is umbilicus. At this point the abdomen is inspected the pneumoperitoneum was collapsed the trocars removed and the suture tied. Dandridge were then applied to the skin. At the end of the procedure he was stable when sent to the recovery room. Complications: None Transferred to: Recovery Room Condition: Good
[2018-11-18] MEDS: HYDROMORPHONE HCL 1 MG/ML INJ ONE ×4 (10:26→10:50)
[2018-11-18] MEDS: HYDROCODONE/APAP 7.5/325 MG TAB PO PRN (23:36)
[2018-11-19] MEDS: PIPER/TAZO/NS 3.375gm 3.375 GM/100 ML BAG IVPB SCH ×2 (01:09→07:46)
[2018-11-19] MEDS: MORPHINE 4 MG/ML SYR IV PRN (01:09)
[2018-11-19 03:04] VITALS: O2SAT 99
[2018-11-19] MEDS: HYDROCODONE/APAP 7.5/325 MG TAB PO PRN ×2 (05:38→10:06)
[2018-11-19] MEDS: NICOTINE 21 MG/PAT TD SCH (05:39)
--- NOTE | 2018-11-19 12:10 | P.PN ---
Date of Service: 11/19/18 S: Patient feels better today, has been up ambulating. O: Wounds are clean A: Surgically stable P: Discharge
[2018-11-19 12:11] VITALS: BP 118/77; TEMP 98.4
== END 2018-11-19 12:30 | disposition home or self-care (01) ==
LOC: ER 17:35 → ERHOLD 20:53 → 4TH 21:24
PROVIDERS: ADMIT Surgery; ATTEND Surgery
PROC: 0DTJ4ZZ Resection of Appendix, Percutaneous Endoscopic Approach (ICD-10-PCS; principal; 2018-11-17)
DX: K35.80 Unspecified acute appendicitis (principal); F17.210 Nicotine dependence, cigarettes, uncomplicated
CPT/HCPCS: 96365; 96361; 85025; 80048; 36415; 80076; 88304; 81003 ×2; 83690; 74177; 96375; 99285; 44970; Q9967; J2704; J2710; J2543 ×4; J2250; J3010; J1100; J2175; J1170 ×2; G0378 ×5; J7030; J2405 ×2; J2550

== ENCOUNTER 2019-09-06 22:12 | Emergency (ER) | payer BC ==
[2019-09-07] MEDS ORDERED: DIPHENHYDRAMINE 50 MG/ML VIAL ONE ×2 (00:55→01:05)
[2019-09-07] MEDS ORDERED: METOCLOPRAMIDE 10 MG/2mL INJ ONE ×2 (00:55→01:05)
[2019-09-07] MEDS ORDERED: KETOROLAC 30 MG/ML INJ ONE ×2 (00:56→01:05)
[2019-09-07] MEDS ORDERED: NA CHLORIDE 0.9% 0 ML ONE (00:56)
[2019-09-07] MEDS ORDERED: NA CHLORIDE 0.9% 250 ML ONE (01:05)
--- NOTE | 2019-09-07 02:02 | EDPHYS ---
Physician Documentation [facility] Name: Jonathon Zamudio Age: 38 yrs Sex: Male : 1980 Arrival Date: 09/06/2019 Time: 22:15 Bed 2 Private MD: ED Physician Prasanna Gaytan HPI: 09/06 01:05 This 38 yrs old Male presents to ER via Ambulatory with complaints of Head jmm Pain -Possible Shingles. 01:05 The patient or guardian reports pain. The complaints affect the left frontal area and jmm left side of the back of head. Onset: The symptoms/episode began/occurred gradually, 2 week(s) ago. Associated signs and symptoms: Loss of consciousness: This patient did not experience any loss of consciousness. This is 38 year old male with no chronic medical conditions that presents to the ED with complaints of two weeks of ongoing headaches. PCP has prescribed antivirals and steroids with concerns for herpes zoster. Patient denies fever, denies trauma. . Historical: - Allergies: 09/05 23:26 No Known Allergies; sg - Home Meds: 23:38 None [Active]; sg - PMHx: 23:38 None; sg - PSHx: 23:26 Hernia repair; sg - Immunization history:: Adult Immunizations up to date. - Social history:: Smoking status: Patient denies any tobacco usage or history of. ROS: 09/06 01:05 Constitutional: Negative for fever, chills, and weight loss, Cardiovascular: Negative jmm for chest pain, palpitations, and edema, Respiratory: Negative for shortness of breath, cough, wheezing, and pleuritic chest pain, Abdomen/GI: Negative for abdominal pain, nausea, vomiting, diarrhea, and constipation. Neuro: Positive for headache. All other systems are negative. Exam: 01:05 Constitutional: This is a well developed, well nourished patient who is awake, alert, jmm and in no acute distress. Head/Face: atraumatic. Eyes: EOMI, no conjunctival erythema appreciated ENT: Moist Mucus Membranes Neck: Trachea midline, Supple Chest/axilla: Normal chest wall appearance and motion. Cardiovascular: Regular rate and rhythm. No edema appreciated Respiratory: Normal respirations, no respiratory distress appreciated Abdomen/GI: Non distended, soft Back: Normal ROM Skin: General appearance color normal MS/ Extremity: Moves all extremities, no obvious deformities appreciated, no edema noted to the lower extremities Neuro: Awake and alert, normal gait Psych: Behavior is normal, Mood is normal, Patient is cooperative and pleasant Vital Signs: 09/05 23:25 BP 133 / 84; Pulse 87; Resp 18; Temp 98.7; Pulse Ox 100% on R/A; Weight 99.79 kg (R); sg Height 6 ft. 3 in. (190.50 cm); Pain 12/05; 09/06 02:32 BP 123 / 78; Pulse 80; Resp 18; Temp 98; Pulse Ox 100% on R/A; mg2 09/05 23:25 Body Mass Index 27.50 (99.79 kg, 190.50 cm) sg MDM: 00:39 Patient medically screened. [facility] 02:00 Data reviewed: vital signs, nurses notes. Counseling: I had a detailed discussion with [facility] the patient and/or guardian regarding: the historical points, exam findings, and any diagnostic results supporting the discharge/admit diagnosis, lab results, the need for outpatient follow up, to return to the emergency department if symptoms worsen or persist or if there are any questions or concerns that arise at home. ED course: Pain is decreased in the ED. CT is negative. Patient is advised to follow up with neuro. Patient is otherwise given strict return precautions. I do not currently suspect meningitis or SAH. . 07 00:40 Order name: CT Head Brain wo Cont [facility] 09/06 00:40 Order name: Saline Lock; Complete Time: 01:10 [facility] Administered Medications: 01:10 Drug: Reglan 20 mg Route: IVP; Site: right antecubital; mg2 02:32 Follow up: Response: No adverse reaction mg2 01:10 Drug: NS 0.9% 250 ml Route: IV; Rate: bolus; Site: right antecubital; mg2 02:32 Follow up: Response: No adverse reaction; IV Status: Completed infusion; IV Intake: mg2 250ml 01:10 Drug: diphenhydrAMINE 12.5 mg Route: IVP; Site: right antecubital; mg2 02:31 Follow up: Response: No adverse reaction mg2 01:10 Drug: Ketorolac 30 mg Route: IVP; Site: right antecubital; mg2 02:31 Follow up: Response: No adverse reaction mg2 02:31 Drug: fentaNYL (PF) 25 mcg Route: IVP; Site: right antecubital; mg2 02:31 Follow up: Response: No adverse reaction mg2 Disposition: 09/07/19 02:01 Discharged to Home. Impression: Headache. - Condition is Stable. - Discharge Instructions: General Headache Without Cause. - Prescriptions for Fiorinal 50- 325-40 mg Oral Capsule - take 1 capsule by ORAL route every 4 hours As needed - not to exceed 6 capsules per day; 20 capsule. - Medication Reconciliation Form, Thank You Letter, Antibiotic Education, Prescription Opioid Use form. - Follow up: Private Physician; When: 2 - 3 days; Reason: Recheck today's complaints, Continuance of care, Re-evaluation by your physician. Addendum: 09/08/2019 07:49 Co-signature as Attending Physician, Prasanna Gaytan MD I agree with the assessment and t w4 plan of care. Signatures: Dispatcher [employer] EDTramaine Hernandez RN RN sg Al Jha PA PA Prasanna Jarvis MD MD tw4 Caleb Aaron RN RN mg2 Corrections: (The following items were deleted from the chart) 09/06 02:32 02:01 09/07/2019 02:01 Discharged to Home. Impression: Headache. Condition is Stable. mg2 Forms are Medication Reconciliation Form, Thank You Letter, Antibiotic Education, Prescription Opioid Use. Follow up: Private Physician; When: 2 - 3 days; Reason: Recheck today's complaints, Continuance of care, Re-evaluation by your physician. cecilia
--- NOTE | 2019-09-07 02:02 | ER ---
Nurse's Notes [facility] Name: Jonathon Zamudio Age: 38 yrs Sex: Male : 1980 Arrival Date: 09/06/2019 Time: 22:15 Bed 2 Private MD: Diagnosis: Headache Presentation: 09/05 22:18 Acuity: ARIANE 3 sg 22:18 Chief complaint: Patient states: Left sided head and scalp pain described as burning, sg reports having been seen by PCP and started on steroids and antivirals but no relief, reports having blurred vision that began about two weeks ago as well. Coronavirus screen: Proceed with normal triage. Ebola Screen: Patient negative for fever greater than or equal to 101.5 degrees Fahrenheit, and additional compatible Ebola Virus Disease symptoms Patient denies exposure to infectious person. Patient denies travel to an Ebola-affected area in the 21 days before illness onset. No symptoms or risks identified at this time. Initial Sepsis Screen: Does the patient meet any 2 criteria? No. Patient's initial sepsis screen is negative. Does the patient have a suspected source of infection? No. Patient's initial sepsis screen is negative. Risk Assessment: Do you want to hurt yourself or someone else? Patient reports no desire to harm self or others. Onset of symptoms was September 06, 2019. Care prior to arrival: None. 22:18 Method Of Arrival: Ambulatory sg Historical: - Allergies: 23:26 No Known Allergies; sg - Home Meds: 23:38 None [Active]; sg - PMHx: 23:38 None; sg - PSHx: 23:26 Hernia repair; sg - Immunization history:: Adult Immunizations up to date. - Social history:: Smoking status: Patient denies any tobacco usage or history of. Screenin/12 00:10 Abuse screen: Denies threats or abuse. Nutritional screening: No deficits noted. mg2 Tuberculosis screening: No symptoms or risk factors identified. Fall Risk None identified. Assessment: 00:15 General: Appears in no apparent distress. uncomfortable, Behavior is calm, cooperative. mg2 Pain: Complains of pain in head Pain does not radiate. Pain at worst was 10 out of 10 on a pain scale. Quality of pain is described as aching, Pain began gradually, 2 weeks ago. Neuro: Level of Consciousness is awake, alert, obeys commands, Oriented to person, place, time, situation. Cardiovascular: Capillary refill < 3 seconds Patient's skin is warm and dry. Respiratory: Airway is patent Respiratory effort is even, unlabored, Respiratory pattern is regular, symmetrical. GI: No signs and/or symptoms were reported involving the gastrointestinal system. : No signs and/or symptoms were reported regarding the genitourinary system. EENT: No signs and/or symptoms were reported regarding the EENT system. Derm: Skin is intact, is healthy with good turgor, Skin is flushed, redness from neck towards the head. Musculoskeletal: Circulation, motion, and sensation intact. Capillary refill < 3 seconds. Vital Signs: 09/05 23:25 BP 133 / 84; Pulse 87; Resp 18; Temp 98.7; Pulse Ox 100% on R/A; Weight 99.79 kg (R); sg Height 6 ft. 3 in. (190.50 cm); Pain 12/05; 09/06 02:32 BP 123 / 78; Pulse 80; Resp 18; Temp 98; Pulse Ox 100% on R/A; mg2 09/05 23:25 Body Mass Index 27.50 (99.79 kg, 190.50 cm) ED Course: 09/05 22:15 Patient arrived in ED. ds1 22:16 Al Jha PA is PHCP. [facility] 22:16 Prasanna Gaytan MD is Attending Physician. [facility] 22:18 Triage completed. 09/06 00:04 Claeb Aaron, RN is Primary Nurse. mg2 00:10 Patient has correct armband on for positive identification. Bed in low position. Call mg2 light in reach. 00:10 Arm band placed on right wrist. Patient placed in an exam room, on a stretcher, on mg2 pulse oximetry. 00:17 No provider procedures requiring assistance completed. mg2 01:07 CT Head Brain wo Cont In Process Unspecified. EDMS 02:32 IV discontinued, intact, bleeding controlled, No redness/swelling at site. Pressure mg2 dressing applied. Administered Medications: 01:10 Drug: Reglan 20 mg Route: IVP; Site: right antecubital; mg2 02:32 Follow up: Response: No adverse reaction mg2 01:10 Drug: NS 0.9% 250 ml Route: IV; Rate: bolus; Site: right antecubital; mg2 02:32 Follow up: Response: No adverse reaction; IV Status: Completed infusion; IV Intake: mg2 250ml 01:10 Drug: diphenhydrAMINE 12.5 mg Route: IVP; Site: right antecubital; mg2 02:31 Follow up: Response: No adverse reaction mg2 01:10 Drug: Ketorolac 30 mg Route: IVP; Site: right antecubital; mg2 02:31 Follow up: Response: No adverse reaction mg2 02:31 Drug: fentaNYL (PF) 25 mcg Route: IVP; Site: right antecubital; mg2 02:31 Follow up: Response: No adverse reaction mg2 Intake: 02:32 IV: 250ml; Total: 250ml. mg2 Outcome: 02:01 Discharge ordered by . cecilia 02:32 Discharged to home ambulatory. mg2 02:32 Condition: stable 02:32 Discharge instructions given to patient, Instructed on discharge instructions, follow up and referral plans. medication usage, Demonstrated understanding of instructions, follow-up care, medications, Prescriptions given X 1. 02:32 Patient left the ED. mg2 Signatures: Dispatcher [employer] EDMS Tramaine Sheffield RN RN sg Al Jha PA PA Anita Rosario ds1 Caleb Aaron RN RN mg2 Corrections: (The following items were deleted from the chart) 09/05 23:27 22:18 Acuity: ARIANE 4 sg sg
[2019-09-07] MEDS ORDERED: FENTANYL CITR 100 MCG/2 ML ONE (02:33)
[2019-09-07 02:51] VITALS: O2SAT 100
[2019-09-07 03:05] VITALS: BP 123/78; TEMP 98
--- NOTE | 2019-09-08 09:53 | RAD REPORT ---
EXAM DESCRIPTION: CT - Head Brain Wo Cont - 09/07/2019 1:45 am CLINICAL HISTORY: HEADACHE TECHNIQUE: Multiple axial CT images of the brain were performed followed by sagittal and coronal rec onstructed images. The CT study is performed according to ALARA (as low as reasonably achievable) or ALARA/IMAGE GENTLY, with automatic adjustment of mA and/or kV according to patient size. Performed on: 09/07/2019 at 12:45 AM COMPARISON: None. FINDINGS: There is no evidence of mass, acute mass effect or midline shift. There are no acute extra -axial fluid collections. There is no evidence of acute intracranial hemorrhage. The cerebral sulci and ventricles are normal in size and configuration. There are no focal abnormal areas of increased or decreased attenuation. There is no significant mucosal thickening of the paranasal sinuses. The mastoid air cells are clear. The orbital contents are grossly unremarkable. No acute osseous abnormalities are identified. No focal soft tissue abnormalities are identified. IMPRESSION: There is no evidence of acute intracranial pathology. Electronically signed by: Christel Shah DO 09/07/2019 1:18 AM CDT Due to temporary technical issues with the PACS/Fluency reporting system, reports are being signed by the in house radiologist without review as a courtesy to ensure prompt reporting. The interpreting r adiologist is fully responsible for the content of the report.
== END 2019-09-07 02:32 | disposition home or self-care (01) ==
LOC: ER 22:12
DX: R51 Headache (principal)
CPT/HCPCS: 96361; 70450; 96375; 96374; 99284; J2765; J1200; J3010; J7050

== ENCOUNTER 2020-06-26 17:54 | Emergency (ER) | payer BC ==
[2020-06-26] MEDS ORDERED: HYDROCODONE/APAP 10/325 TAB ONE (19:20)
--- NOTE | 2020-06-26 19:48 | RAD REPORT ---
EXAM DESCRIPTION: RAD - Elbow Right 3 View - 06/26/2020 6:53 pm CLINICAL HISTORY: fall yesterday on to R elbow. ;Pain COMPARISON: No comparisonsNone. FINDINGS: No fracture is identified and no elevated posterior fat pad. There is no dislocation or pe riosteal reaction noted. Soft tissue thickening or edema present posterior to the elbow joint. No air or foreign body seen. No other significant finding. IMPRESSION: Posterior elbow soft tissue swelling with no air or foreign body. No acute bone or joint finding.
[2020-06-26] MEDS ORDERED: KETOROLAC 30 MG/ML INJ ONE (20:02)
--- NOTE | 2020-06-26 20:20 | ER ---
Nurse's Notes [facility] Name: Jonathon Zmaudio Age: 39 yrs Sex: Male : 1980 Arrival Date: 06/26/2020 Time: 17:55 Bed 5 Private MD: Diagnosis: Contusion of right elbow;Abrasion of right elbow Presentation: 06/26 18:07 Chief complaint: Patient states: Fell yesterday from a standing position onto R elbow. ss PT reports that the pain is much worse today. Coronavirus screen: Client denies travel out of the [place] in the last 14 days. Ebola Screen: Patient denies exposure to infectious person. Patient denies travel to an Ebola-affected area in the 21 days before illness onset. Initial Sepsis Screen: Does the patient meet any 2 criteria? No. Patient's initial sepsis screen is negative. Does the patient have a suspected source of infection? No. Patient's initial sepsis screen is negative. Risk Assessment: Do you want to hurt yourself or someone else? Patient reports no desire to harm self or others. Onset of symptoms was June 25, 2020. 18:07 Method Of Arrival: Ambulatory ss 18:07 Acuity: ARIANE 3 ss Triage Assessment: 19:06 Injury Description: Abrasion sustained to right elbow is dirty, imbedded with road ca1 debris scabbed. Historical: - Allergies: 18:09 No Known Allergies; ss - Home Meds: 18:09 None [Active]; ss - PMHx: 18:09 None; ss - PSHx: 18:09 Hernia repair; Appendectomy; ss - Immunization history:: Adult Immunizations up to date. - Social history:: Smoking status: Patient reports the use of cigarette tobacco products, smokes one-half pack cigarettes per day. Screenin:05 Abuse screen: Denies threats or abuse. Denies injuries from another. Nutritional ca1 screening: No deficits noted. On. Tuberculosis screening: No symptoms or risk factors identified. Fall Risk None identified. Assessment: 19:05 General: Appears in no apparent distress. comfortable, Behavior is calm, cooperative, ca1 appropriate for age. Pain: Complains of pain in right elbow Pain currently is 10 out of 10 on a pain scale. Pain began 1 day ago. Neuro: Level of Consciousness is awake, alert, obeys commands, Oriented to person, place, time, situation. Derm: Skin is healthy with good turgor, Skin is pink, warm \T\ dry. Wound noted right elbow Wound is scabbed, dry. Musculoskeletal: Circulation, motion, and sensation intact. Capillary refill < 3 seconds. 20:39 Reassessment: Patient and/or family updated on plan of care and expected duration. Pain ea level reassessed. Patient is alert, oriented x 3, equal unlabored respirations, skin warm/dry/pink. Discharge instruction given to patient verbalized the understanding of instruction. Pt left ED ambulatory tolerating well. Pt accompanied by spouse. Vital Signs: 18:07 BP 139 / 93; Pulse 101; Resp 16; Temp 98.8(TE); Pulse Ox 99% on R/A; Weight 99.79 kg; ss Height 6 ft. 3 in. (190.50 cm); Pain 10/10; 20:35 BP 136 / 70; Pulse 89; Resp 18; Pulse Ox 98% ; ea 18:07 Body Mass Index 27.50 (99.79 kg, 190.50 cm) ED Course: 17:55 Patient arrived in ED. as 18:08 Triage completed. ss 18:09 Arm band placed on left wrist. ss 18:48 Merlin Caruso NP is PHCP. pm1 18:48 Ramirez Vanegas MD is Attending Physician. pm1 18:53 XRAY Elbow RIGHT 3 view In Process Unspecified. EDMS 18:55 Alesia Hernandez, MARTY is Primary Nurse. ca1 19:05 Patient has correct armband on for positive identification. Bed in low position. Call ca1 light in reach. Side rails up X 1. Pulse ox on. NIBP on. 19:05 No provider procedures requiring assistance completed. Patient did not have IV access ca1 during this emergency room visit. 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 Exp: ea 04/17/2022. Lot #: [id number]. } Route: IM; Site: left deltoid; 20:38 Follow up: Response: No adverse reaction ea 20:25 Drug: morphine 4 mg Route: IM; Site: right deltoid; ea 20:38 Follow up: Response: No adverse reaction ea Outcome: 20:19 Discharge ordered by . pm1 20:38 Discharged to home ambulatory, with family. ea 20:38 Condition: stable 20:38 Discharge instructions given to patient, Instructed on discharge instructions, follow up and referral plans. medication usage, Demonstrated understanding of instructions, follow-up care, medications, Prescriptions given X 2. 20:40 Patient left the ED. ea Signatures: Dispatcher [employer] EDMS Ashly Amaro Shelby, RN RN ss Merlin Caruso, MAKAYLA GO CART MECHANIC pm1 Shanae Becerra RN RN ea Acob, Cheryl, RN RN ca1
--- NOTE | 2020-06-26 20:20 | EDPHYS ---
Physician Documentation [facility] Name: Jonathon Zamudio Age: 39 yrs Sex: Male : 1980 Arrival Date: 06/26/2020 Time: 17:55 Bed 5 Private MD: ED Physician Ramirez Vanegas HPI: 06/26 19:01 This 39 yrs old Male presents to ER via Ambulatory with complaints of Elbow pm1 Injury. 19:01 The patient or guardian complains of injury. The complaints affect the right elbow. pm1 Context: The problem was sustained outdoors, resulted from Patient fell backwards and hit his elbow on concrete. Patient does not want to report how he fell. Onset: The symptoms/episode began/occurred yesterday. Treatment prior to arrival includes: topical antibiotics . Modifying factors: The symptoms are alleviated by remaining still, the symptoms are aggravated by movement. Associated signs and symptoms: Pertinent positives: swelling, tenderness, of the right elbow, Pertinent negatives: fever. Severity of symptoms: in the emergency department the symptoms are unchanged. The patient has not experienced similar symptoms in the past. The patient has not recently seen a physician. Historical: - Allergies: 18:09 No Known Allergies; ss - Home Meds: 18:09 None [Active]; ss - PMHx: 18:09 None; ss - PSHx: 18:09 Hernia repair; Appendectomy; ss - Immunization history:: Adult Immunizations up to date. - Social history:: Smoking status: Patient reports the use of cigarette tobacco products, smokes one-half pack cigarettes per day. ROS: 19:01 Constitutional: Negative for fever, chills, and weight loss, Cardiovascular: Negative pm1 for chest pain, palpitations, and edema, Respiratory: Negative for shortness of breath, cough, wheezing, and pleuritic chest pain. 19:01 Neuro: Negative for headache, weakness, numbness, tingling, and seizure. 19:01 MS/extremity: Positive for pain, swelling, tenderness, of the right elbow, Negative for decreased range of motion, deformity. 19:01 Skin: Positive for laceration(s), of the right elbow. Exam: 19:01 Constitutional: This is a well developed, well nourished patient who is awake, alert, pm1 and in no acute distress. Head/Face: Normocephalic, atraumatic. 19:01 Neck: ROM/movement: is normal, is supple. 19:01 Cardiovascular: Exam negative for acute changes, Rate: normal, Rhythm: regular, Pulses: no pulse deficits are appreciated. 19:01 Respiratory: Exam negative for acute changes, respiratory distress, shortness of breath. 19:01 Skin: Appearance: normal except for affected area, injury, abrasion(s), small abrasion noted, of the right elbow, Cleansed thoroughly and no laceration or puncture wound present. 19:01 Neuro: Exam negative for acute changes, Orientation: is normal, Motor: is normal, moves all fours. 19:01 Musculoskeletal/extremity: Extremities: grossly normal except: noted in the right pm1 elbow: localized tenderness and swelling to right elbow, There is no evidence of decreased ROM, deformity. Vital Signs: 18:07 BP 139 / 93; Pulse 101; Resp 16; Temp 98.8(TE); Pulse Ox 99% on R/A; Weight 99.79 kg; ss Height 6 ft. 3 in. (190.50 cm); Pain 10/10; 20:35 BP 136 / 70; Pulse 89; Resp 18; Pulse Ox 98% ; ea 18:07 Body Mass Index 27.50 (99.79 kg, 190.50 cm) ss MDM: 18:49 Patient medically screened. pm1 20:16 Data reviewed: vital signs. Data interpreted: Pulse oximetry: on room air is 99 %. pm1 Interpretation: normal. 20:17 Counseling: I had a detailed discussion with the patient and/or guardian regarding: the pm1 historical points, exam findings, and any diagnostic results supporting the discharge/admit diagnosis, radiology results, the need for outpatient follow up, a family practitioner, to return to the emergency department if symptoms worsen or persist or if there are any questions or concerns that arise at home. 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 Exp: ea 04/17/2022. Lot #: [id number]. } Route: IM; Site: left deltoid; 20:38 Follow up: Response: No adverse reaction ea 20:25 Drug: morphine 4 mg Route: IM; Site: right deltoid; ea 20:38 Follow up: Response: No adverse reaction ea Disposition: 06/26/20 20:19 Discharged to Home. Impression: Contusion of right elbow, Abrasion of right elbow. - Condition is Stable. - Discharge Instructions: Elbow Contusion, Elbow Bursitis. - Prescriptions for Tylenol- Codeine #3 300-30 mg Oral Tablet - take 2 tablets by ORAL route every 4-6 hours As needed; 20 tablet. Diclofenac Sodium 75 mg Oral Tablet, Delayed Release (E.C.) - take 1 tablet by ORAL route 2 times per day As needed; 30 tablet. - Medication Reconciliation Form, Thank You Letter, Antibiotic Education, Prescription Opioid Use form. - Follow up: Emergency Department; When: As needed; Reason: Worsening of condition. Follow up: Private Physician; When: 2 - 3 days; Reason: Recheck today's complaints, Continuance of care, Re-evaluation by your physician. - Problem is new. - Symptoms have improved. Addendum: 06/28/2020 19:58 Co-signature as Attending Physician, Ramirez Vanegas MD. r n Signatures: Dispatcher [employer] EDRamirez Cook MD MD rn Smirch, Shelby, RN RN ss Marinas, Patrick, MERCHANDISING LEAD MERCHANDISING LEAD pm1 Shanae Becerra RN RN ea Acob, Cheryl RN RN ca1 Corrections: (The following items were deleted from the chart) 06/26 19:57 19:47 Splint - Elbow - Posterior ordered. pm1 pm1 20:20 20:19 06/26/2020 20:19 Discharged to Home. Impression: Contusion of right elbow. pm1 Condition is Stable. Forms are Medication Reconciliation Form, Thank You Letter, Antibiotic Education, Prescription Opioid Use. Follow up: Emergency Department; When: As needed; Reason: Worsening of condition. Follow up: Private Physician; When: 2 - 3 days; Reason: Recheck today's complaints, Continuance of care, Re-evaluation by your physician. Problem is new. Symptoms have improved. pm1 20:40 20:20 06/26/2020 20:19 Discharged to Home. Impression: Contusion of right elbow; ea Abrasion of right elbow. Condition is Stable. Discharge Instructions: Elbow Contusion. Prescriptions for Tylenol-Codeine #3 300-30 mg Oral Tablet - take 2 tablets by ORAL route every 4-6 hours As needed; 20 tablet, Diclofenac Sodium 75 mg Oral Tablet Sustained Release - take 1 tablet by ORAL route 2 times per day; 30 tablet. and Forms are Medication Reconciliation Form, Thank You Letter, Antibiotic Education, Prescription Opioid Use. Follow up: Emergency Department; When: As needed; Reason: Worsening of condition. Follow up: Private Physician; When: 2 - 3 days; Reason: Recheck today's complaints, Continuance of care, Re-evaluation by your physician. Problem is new. Symptoms have improved. pm1
[2020-06-26] MEDS ORDERED: MORPHINE 4 MG/ML SYR ONE (20:38)
[2020-06-26] MEDS ORDERED: TETANUS & DIPHTHERIA TOX,ADULT 0.5 ML VIAL ONE (20:39)
[2020-06-26 20:50] VITALS: BP 136/70; O2SAT 98
[2020-06-26 20:52] VITALS: TEMP 98.8
== END 2020-06-26 20:40 | disposition home or self-care (01) ==
LOC: ER 17:54
DX: S50.311A Abrasion of right elbow, initial encounter (principal); W18.39XA Other fall on same level, initial encounter; Y92.89 Other specified places as the place of occurrence of the external cause; Z23 Encounter for immunization; F17.210 Nicotine dependence, cigarettes, uncomplicated
CPT/HCPCS: 90471; 90714; 96372; 99284

== ENCOUNTER 2023-06-26 17:58 | Inpatient (IN) | payer BC, SELFPAY ==
[2023-06-26] MEDS ORDERED: LORazepam 2 MG/ML VIAL ONE ×2 (18:42→21:53)
[2023-06-26] MEDS ORDERED: ONDANSETRON 4 MG/2 ML VIAL ONE ×2 (18:42→19:00)
[2023-06-26] MEDS ORDERED: PANTOPRAZOLE 40 MG INJ ONE (18:43)
[2023-06-26] MEDS ORDERED: VITAMIN K (ADULT) 10 MG/ML ONE (18:43)
[2023-06-26] MEDS ORDERED: MULTIVITAMINS 10 ML VIAL (INJ) IV ONE ×2 (18:43→23:54)
[2023-06-26] MEDS ORDERED: THIAMINE 200 MG/2 ML INJ ONE ×2 (18:43→23:53)
[2023-06-26 18:44] LABS: Absolute Basophils 0.1 K/uL (0-0.5); Absolute Lymphocytes (CBC) 1.8 K/uL (0.7-4.9); Absolute Neutrophil 6.4 K/uL (1.8-8.0); Basophils % 0.7 % (0-1.3); Eosinophils % 0.3 % (0-4.4); Hematocrit 46.9 % (39.6-49.0); Hemoglobin 16.6 g/dL (13.6-17.9); Lymphocytes % 19.6 % (15.3-44.8); MCH 34.6 pg (27.0-35.0); MCHC 35.4 g/dL (32.0-36.0); MCV 97.6 fL (80-100); MPV 7.3 fL (7.6-11.3); Monocytes % 10.4 % (3.3-12.3); Nucleated Red Blood Cells % 0.1 % (0-0); Platelets 163 thou/uL (152-406); RBC Red Blood Cell Count 4.81 M/uL (4.33-5.43); Red Cell Distribution Width 15.3 % (12.1-15.2)
[2023-06-26] MEDS ORDERED: NA CHLORIDE 0.9% 250 ML ONE (18:44)
[2023-06-26] MEDS ORDERED: FOLIC ACID 5 MG/ML VIAL ONE ×2 (18:44→23:55)
[2023-06-26] MEDS ORDERED: NA CHLORIDE 0.9% 2,000 ML ONE (18:44)
[2023-06-26 18:50] LABS: PT Prothrombin Time 10.6 SECONDS (9.5-12.5); PTT, Activated Partial Thromb 30.4 SECONDS (24.3-36.9); Protime INR 0.96
[2023-06-26 19:09] LABS: ALT/SGPT 114 U/L (16-61); AST/SGOT 96 U/L (15-37); Albumin 4.3 g/dL (3.4-5.0); Alkaline Phosphatase 127 U/L (45-117); Anion Gap 17.1 mEq/L (5.0-15.0); BUN Blood Urea Nitrogen 8 mg/dL (7-18); Bicarbonate 23 mEq/L (21-32); Bilirubin Direct 0.8 mg/dL (0-0.2); Bilirubin Indirect, Calculated 1.6 mg/dL (0.2-0.8); Bilirubin Total 2.4 mg/dL (0.2-1.0); Globulin 4.2 g/dL (2.3-3.5); Glomerular Filtration Rate 110 ml/min (=/>90); Glucose Level 123 mg/dL (74-106); Lipase 103 U/L (13-75); Magnesium 1.7 mg/dL (1.6-2.4); NT PRO-BNP 173 pg/mL (<125); Potassium 3.1 mEq/L (3.5-5.1); Protein, Total 8.5 g/dL (6.4-8.2); Sodium Level 131 mEq/L (136-145); Troponin High Sensitivity 4.9 pg/mL (<58.9)
--- NOTE | 2023-06-26 19:21 | RAD REPORT ---
EXAM DESCRIPTION: RAD - Chest Single View - 06/26/2023 7:07 pm CLINICAL HISTORY: COUGH Chest pain. COMPARISON: No comparisons FINDINGS: Portable technique limits examination quality. Interstitial markings are mildly prominent which may be related to chronic bronchitis, mild interstit ial edema or viral infection. The heart is upper limit of normal in size. Mildly tortuous thoracic ao rta. No displaced fractures.
--- NOTE | 2023-06-26 20:06 | RAD REPORT ---
EXAM DESCRIPTION: CTAbdomen Pelvis W Contrast - 06/26/2023 7:52 pm CLINICAL HISTORY: Abdominal pain. ABD PAIN COMPARISON: Abdomen Pelvis W Contrast dated 11/17/2018; Abdomen Pelvis W Contrast dated 10/18/2017 TECHNIQUE: Biphasic CT imaging of the abdomen and pelvis was performed with 100 ml non-ionic IV cont rast. All CT scans are performed using dose optimization technique as appropriate and may include automated exposure control or mA/KV adjustment according to patient size. FINDINGS: The lung bases are clear. The liver demonstrates diffuse fatty infiltration. Spleen, pancreas, adrenal glands and kidneys are w ithin normal limits. No bowel obstruction, free air, free fluid or abscess. Prominent sigmoid diverticulosis coli is prese nt without diverticulitis. Moderate stool is retained throughout the colon. Appendectomy. Small fat c ontaining umbilical hernia. No evidence of significant lymphadenopathy. No suspicious bony findings. IMPRESSION: No acute intra-abdominal or pelvic finding. Prominent diffuse fatty liver pattern.
--- NOTE | 2023-06-26 21:01 | EDPHYS ---
Physician Documentation [facility] Name: Jonathon Zamudio Age: 42 yrs Sex: Male : 1980 Arrival Date: 06/26/2023 Time: 17:58 Bed 5 Private MD: ED Physician Domenico Martinez HPI: 06/25 18:28 This 42 yrs old Male presents to ER via Ambulatory with complaints of radha Weakness, Vomiting - Bleeding, Abdominal Pain. 18:28 The patient presents to the emergency department with weakness of the. radha Historical: - Allergies: 18:10 No Known Allergies; as6 - PMHx: 18:10 None; as6 - PSHx: 18:10 Appendectomy; back; as6 - Immunization history:: Adult Immunizations up to date. - Infectious Disease History:: Denies. - Social history:: Smoking status: Patient reports the use of cigarette tobacco products, smokes one pack cigarettes per day. Patient uses alcohol, on a daily basis. ROS: 18:29 Constitutional: Negative for fever, chills, and weight loss, Eyes: Negative for injury, radha pain, redness, and discharge, ENT: Negative for injury, pain, and discharge, Neck: Negative for injury, pain, and swelling, Respiratory: Negative for shortness of breath, cough, wheezing, and pleuritic chest pain, Back: Negative for injury and pain, : Negative for injury, bleeding, discharge, and swelling, MS/Extremity: Negative for injury and deformity, Skin: Negative for injury, rash, and discoloration, Neuro: Negative for headache, weakness, numbness, tingling, and seizure, Psych: Negative for depression, anxiety, suicide ideation, homicidal ideation, and hallucinations, Allergy/Immunology: Negative for hives, rash, and allergies, Endocrine: Negative for neck swelling, polydipsia, polyuria, polyphagia, and marked weight changes, Hematologic/Lymphatic: Negative for swollen nodes, abnormal bleeding, and unusual bruising, 18:29 Cardiovascular: Positive for palpitations, 18:29 Respiratory: Positive for cough, 18:29 Abdomen/GI: Positive for abdominal pain, nausea and vomiting, nausea, vomiting, abdominal cramps, abdominal distension, hematemesis, Exam: 18:29 Constitutional: This is a well developed, well nourished patient who is awake, alert, radha and in no acute distress. Head/Face: Normocephalic, atraumatic. Eyes: Pupils equal round and reactive to light, extra-ocular motions intact. Lids and lashes normal. Conjunctiva and sclera are non-icteric and not injected. Cornea within normal limits. Periorbital areas with no swelling, redness, or edema. ENT: Nares patent. No nasal discharge, no septal abnormalities noted. Tympanic membranes are normal and external auditory canals are clear. Oropharynx with no redness, swelling, or masses, exudates, or evidence of obstruction, uvula midline. Mucous membranes moist. Neck: Trachea midline, no thyromegaly or masses palpated, and no cervical lymphadenopathy. Supple, full range of motion without nuchal rigidity, or vertebral point tenderness. No Meningismus. Chest/axilla: Normal chest wall appearance and motion. Nontender with no deformity. No lesions are appreciated. Respiratory: Lungs have equal breath sounds bilaterally, clear to auscultation and percussion. No rales, rhonchi or wheezes noted. No increased work of breathing, no retractions or nasal flaring. Back: No spinal tenderness. No costovertebral tenderness. Full range of motion. Male : Normal genitalia with no discharge or lesions. Skin: Warm, dry with normal turgor. Normal color with no rashes, no lesions, and no evidence of cellulitis. MS/ Extremity: Pulses equal, no cyanosis. Neurovascular intact. Full, normal range of motion. Neuro: Awake and alert, GCS 15, oriented to person, place, time, and situation. Cranial nerves II-XII grossly intact. Motor strength 5/5 in all extremities. Sensory grossly intact. Cerebellar exam normal. Normal gait. Psych: Awake, alert, with orientation to person, place and time. Behavior, mood, and affect are within normal limits. 18:29 Cardiovascular: Rate: tachycardic, actual rate is 117 bpm, Rhythm: regular, Pulses: Heart sounds: normal, Edema: is not appreciated, JVD: is not appreciated, 18:29 Abdomen/GI: Inspection: distension, that is mild, Bowel sounds: normal, Palpation: moderate abdominal tenderness, in all quadrants, Liver: no appreciated palpable abnormalities, Hernia: not appreciated, 18:48 ECG was reviewed by the Attending Physician. [facility] Vital Signs: 18:09 BP 177 / 106; Pulse 117; Resp 20 S; Temp 98.2(TE); Pulse Ox 98% on R/A; Weight 99.79 kg as6 (R); Height 6 ft. 3 in. (R); Pain 7/10; 19:00 BP 172 / 102; Pulse 92; Resp 19; Pulse Ox 96% on R/A; me1 20:00 BP 143 / 105; Pulse 90; Resp 15; Pulse Ox 97% on R/A; me1 21:15 BP 150 / 97; Pulse 91; Resp 16; Pulse Ox 96% ; vc1 21:45 BP 148 / 93; Pulse 96; Resp 17; Pulse Ox 97% on R/A; me1 18:09 Body Mass Index 27.50 (99.79 kg, 190.5 cm) as6 18:09 Pain Scale: Adult as6 MDM: 18:19 Patient medically screened. radha 18:31 Differential diagnosis: diverticulitis, bowel obstruction, Cholelithiasis, gastritis, radha gastroesophageal reflux disease, GI Bleed, Hepatitis, Mesenteric ischemia or infarction, non-specific abd pain, pancreatitis, Peptic Ulcer Disease, Perf. Duodenal Ulcer, Perf. Gastric Ulcer, Peritonitis, Pyelonephritis, urinary tract infection. Data reviewed: vital signs, nurses notes, lab test result(s), EKG, radiologic studies, CT scan, plain films. Consideration of Admission/Observation Escalation of care including admission/observation considered. I considered the following discharge prescriptions or medication management in the emergency department Medications were administered in the Emergency Department. See MAR. Independent interpretation of the following test(s) in the Emergency Department EKG: See my EKG interpretation above. 06/25 18:23 Order name: Basic Metabolic Panel; Complete Time: 20:56 [facility] 06/25 18:23 Order name: CBC with Diff; Complete Time: 20:56 [facility] 06/25 18:23 Order name: LFT's; Complete Time: 20:56 [facility] 06/25 18:23 Order name: Magnesium; Complete Time: 20:56 radha 06/25 18:23 Order name: NT PRO-BNP; Complete Time: 20:56 [facility] 06/25 18:23 Order name: PT-INR; Complete Time: 20:56 [facility] 06/25 18:23 Order name: Troponin HS; Complete Time: 20:56 [facility] 06/25 18:23 Order name: Lipase; Complete Time: 20:56 radha 06/25 18:23 Order name: Acetaminophen; Complete Time: 20:56 radha 06/25 18:23 Order name: ETOH Level; Complete Time: 20:56 [facility] 06/25 18:23 Order name: Ptt, Activated; Complete Time: 20:56 [facility] 06/25 18:23 Order name: Salicylate; Complete Time: 20:56 radha 06/25 18:23 Order name: Urinalysis w/ reflexes [facility] 06/25 18:23 Order name: Urine Drug Screen [facility] 06/25 18:23 Order name: Type And Screen [facility] 06/25 18:25 Order name: Bb Add On bd 06/25 19:42 Order name: ABO/RH no charge; Complete Time: 20:56 EDMS 06/25 21:02 Order name: AMMONIA [facility] 06/25 21:45 Order name: Urinalysis w/ reflexes EDMS 06/25 21:45 Order name: CBC with Automated Diff EDMD 06/25 21:45 Order name: CBC with Automated Diff EDMS 06/25 21:45 Order name: Comprehensive Metabolic Panel EDMS 06/25 21:45 Order name: Comprehensive Metabolic Panel EDMD 06/25 18:23 Order name: XRAY Chest (1 view); Complete Time: 20:56 [facility] 06/25 18:28 Order name: CT Abd/Pelvis - IV Contrast Only; Complete Time: 20:56 [facility] 06/25 18:23 Order name: EKG; Complete Time: 18:24 [facility] 06/25 18:23 Order name: Cardiac monitoring; Complete Time: 18:25 [facility] 06/25 18:23 Order name: EKG - Nurse/Tech 06/25 18:23 Order name: IV Saline Lock; Complete Time: 18:38 06/25 18:23 Order name: Labs collected and sent; Complete Time: 18:38 radha 06/25 18:23 Order name: O2 Per Protocol; Complete Time: 18:25 radha 06/25 18:23 Order name: O2 Sat Monitoring; Complete Time: 18:25 [facility] 06/25 18:23 Order name: Suicide Screening ([place]); Complete Time: 21:35 [facility] 06/25 18:23 Order name: IV Saline Lock - Large Bore; Complete Time: 21:35 [facility] 06/25 21:03 Order name: PO challenge: ice water prn; Complete Time: 21:34 radha EC:48 Rate is 93 beats/min. Rhythm is regular. QRS [place] is Normal. [place] interval is normal. QRS radha interval is normal. QT interval is prolonged at 564 msec. No Q waves. T waves are Normal. No ST changes noted. Clinical impression: NSR w/ Non-specific ST/T Changes and No evidence of ischemia. Interpreted by me. Reviewed by me. Administered Medications: 18:59 Drug: Thiamine IV 100 mg IV at bolus once Route: IV; Rate: bolus; Site: right me1 antecubital; 19:30 Follow up: Response: No adverse reaction; IV Status: Completed infusion me1 18:59 Drug: NS 0.9% IV 1000 ml IV at 1 bolus Per protocol; 1000 mL bolus Route: IV; Rate: 1 me1 bolus; Site: right antecubital; 20:38 Follow up: Response: No adverse reaction; IV Status: Completed infusion; IV Intake: me1 1000ml 18:59 Drug: Ondansetron IVP 8 mg IVP once; over 2 minutes Route: IVP; Site: right antecubital;me1 19:30 Follow up: Response: No adverse reaction; Nausea is decreased me1 19:00 Drug: Ativan IVP 2 mg IVP once Route: IVP; Site: right antecubital; me1 19:30 Follow up: Response: No adverse reaction; Anxiety decreased me1 19:12 Drug: Pantoprazole IVP 80 mg IVP once Route: IVP; Site: right antecubital; me1 19:29 Follow up: Response: No adverse reaction me1 22:10 Follow up: Response: No adverse reaction me1 19:12 Drug: Banana Bag - (Multivitamin IV 1 amp, NS 0.9% IV 1000 ml, Thiamine IV 100 mg, me1 foLIC Acid IVPB 1 mg) IV at 500 ml/hr once Route: IV; Rate: 500 ml/hr; Site: right antecubital; 21:35 Follow up: IV Status: Completed infusion; IV Intake: 1000ml vc1 19:12 Drug: Phytonadione Sub-Q 10 mg Sub-Q once Route: Sub-Q; Site: right upper abdomen; me1 19:30 Follow up: Response: No adverse reaction me1 19:29 Drug: Pantoprazole IV 8 mg/hr IV at 25 ml/hr continuous; (Standard dilution is 80 mg in me1 250 mL NS) Route: IV; Rate: 25 ml/hr; Site: left antecubital; 22:10 Follow up: IV Status: Infusion continued upon admission me1 21:34 Drug: Magnesium Sulfate IVPB 2 grams IVPB once over 1 hrs Route: IVPB; Infused Over: 1 vc1 hrs; Site: left antecubital; 22:10 Follow up: IV Status: Infusion continued upon admission me1 21:34 Drug: Potassium Chloride IV 20 mEq IV at per protocol once; administer over 1-2 hours vc1 Route: IV; Rate: per protocol; Site: left antecubital; 22:10 Follow up: IV Status: Infusion continued upon admission me1 21:34 Drug: NS 0.9% with KCl IV 20 mEq/L 1000 ml IV at 125 ml/hr continuous Route: IV; Rate: vc1 125 ml/hr; Site: right antecubital; 22:09 Follow up: IV Status: Infusion continued upon admission me1 21:34 Drug: Labetalol PO 100 mg PO once Route: PO; vc1 21:55 Follow up: Response: No adverse reaction vc1 21:55 Drug: Ativan IVP 1 mg IVP once; prn anxiety Route: IVP; Site: right antecubital; vc1 22:09 Follow up: Response: No adverse reaction; Anxiety decreased me1 Disposition Summary: 06/26/23 21:01 Hospitalization Ordered Notes: Hospitalization Status: Inpatient Admission radha Provider: Jayesh Juarez [facility] Condition: Fair radha Problem: new radha Symptoms: have improved radha Bed/Room Type: Standard radha Room Assignment: 406(06/26/23 21:56) rv1 Diagnosis - GI Bleed/ Gastrointestinal hemorrhage, unspecified - upper radha - Alcohol abuse, uncomplicated radha - Alcohol dependence radha - Hypokalemia radha - Essential (primary) hypertension radha Forms: - Medication Reconciliation Form radha - SBAR form radha - Leadership Thank You Letter radha Signatures: Dispatcher [employer] Domenico Cardona MD MD cha Slawson, Ashby, RN RN as6 Ayesha Monson RN RN vc1 Mary Lou Zavala rv1 Roxane Pritchett RN RN me1 Corrections: (The following items were deleted from the chart) 21:02 21:02 AMMONIA+C.LAB.BRZ ordered. EDMS EDMS : 18:31 Packed RBC Leukored ordered. EDMS EDMS 21:56 21:01 radha rv1
--- NOTE | 2023-06-26 21:01 | ER ---
Nurse's Notes [facility] Name: Jonathon Zamudio Age: 42 yrs Sex: Male : 1980 Arrival Date: 06/26/2023 Time: 17:58 Bed 5 Private MD: Diagnosis: GI Bleed/ Gastrointestinal hemorrhage, unspecified-upper;Alcohol abuse, uncomplicated;Alcohol dependence;Hypokalemia;Essential (primary) hypertension Presentation: 06/25 18:10 Chief complaint: Patient states: vomiting blood for the past 3 days. pt reports he is a as6 daily drinker. Coronavirus screen: At this time, the client does not indicate any symptoms associated with coronavirus-19. Ebola Screen: No symptoms or risks identified at this time. Initial Sepsis Screen: Does the patient meet any 2 criteria? No. Patient's initial sepsis screen is negative. Does the patient have a suspected source of infection? No. Patient's initial sepsis screen is negative. Risk Assessment: Do you want to hurt yourself or someone else? Patient reports no desire to harm self or others. Onset of symptoms was June 23, 2023. 18:10 Acuity: ARIANE 2 as6 18:10 Method Of Arrival: Ambulatory as6 Historical: - Allergies: 18:10 No Known Allergies; as6 - PMHx: 18:10 None; as6 - PSHx: 18:10 Appendectomy; back; as6 - Immunization history:: Adult Immunizations up to date. - Infectious Disease History:: Denies. - Social history:: Smoking status: Patient reports the use of cigarette tobacco products, smokes one pack cigarettes per day. Patient uses alcohol, on a daily basis. Screenin:20 [facility] ED Fall Risk Assessment (Adult) History of falling in the last 3 months, me1 including since admission No falls in past 3 months (0 pts) Confusion or Disorientation No (0 pts) Intoxicated or Sedated No (0 pts) Impaired Gait No (0 pts) Mobility Assist Device Used No (0 pt) Altered Elimination No (0 pt) Score/Fall Risk Level 0 - 2 = Low Risk Maintained a safe environment, Provided non-skid footwear, Hourly rounding (assess needs \T\ fall precautionary measures) done. Abuse screen: Denies threats or abuse. Nutritional screening: No deficits noted. Tuberculosis screening: No symptoms or risk factors identified. Assessment: 18:20 General: Appears uncomfortable, ill, well groomed, well developed, well nourished, me1 Behavior is calm, cooperative, appropriate for age, Reports vomiting blood x 3 days. General:. Pain: Complains of pain in abdomen Pain does not radiate. Pain currently is 7 out of 10 on a pain scale. Quality of pain is described as sharp, Pain began 2-3 days ago. Is intermittent. Neuro: Level of Consciousness is awake, alert, obeys commands, Oriented to person, place, time, situation, Appropriate for age. Neuro: Cardiovascular: Capillary refill < 3 seconds Patient's skin is warm and dry. Respiratory: Airway is patent Respiratory effort is even, unlabored, Respiratory pattern is regular, symmetrical. GI: Reports nausea, vomiting, since 3 days ago. : No signs and/or symptoms were reported regarding the genitourinary system. EENT: No signs and/or symptoms were reported regarding the EENT system. Derm: Skin is intact, is healthy with good turgor, Skin is pink, warm \T\ dry. Musculoskeletal: No signs and/or symptoms reported regarding the musculoskeletal system. Vital Signs: 18:09 BP 177 / 106; Pulse 117; Resp 20 S; Temp 98.2(TE); Pulse Ox 98% on R/A; Weight 99.79 kg as6 (R); Height 6 ft. 3 in. (R); Pain 7/10; 19:00 BP 172 / 102; Pulse 92; Resp 19; Pulse Ox 96% on R/A; me1 20:00 BP 143 / 105; Pulse 90; Resp 15; Pulse Ox 97% on R/A; me1 21:15 BP 150 / 97; Pulse 91; Resp 16; Pulse Ox 96% ; vc1 21:45 BP 148 / 93; Pulse 96; Resp 17; Pulse Ox 97% on R/A; me1 18:09 Body Mass Index 27.50 (99.79 kg, 190.5 cm) as6 18:09 Pain Scale: Adult as6 ED Course: 18:03 Patient arrived in ED. mg5 18:09 Arm band placed on right wrist. as6 18:11 Triage completed. as6 18:19 Domenico Martinez MD is Attending Physician. [facility] 18:20 Patient has correct armband on for positive identification. Bed in low position. Call me1 light in reach. Side rails up X 1. Provided Education on: POC. Verbalized understanding.. 18:20 No provider procedures requiring assistance completed. me1 18:23 surveillance monitor on. Pulse ox on. NIBP on. Door closed. Noise minimized. Warm blanket ap3 given. 18:38 Initial lab(s) drawn, by tx, sent to lab. T\T\S collected, blood band applied to patient. me1 Inserted saline lock: 20 gauge in right antecubital area, using aseptic technique. 18:38 Acetaminophen Sent. me1 18:38 ETOH Level Sent. me1 18:38 Ptt, Activated Sent. me1 18:38 Salicylate Sent. me1 18:38 Lipase Sent. me1 18:38 Basic Metabolic Panel Sent. me1 18:38 CBC with Diff Sent. me1 18:38 LFT's Sent. me1 18:39 Magnesium Sent. me1 18:39 NT PRO-BNP Sent. me1 18:39 PT-INR Sent. me1 18:39 Troponin HS Sent. me1 19:09 XRAY Chest (1 view) In Process Unspecified. EDMS 19:29 Roxane Pritchett, RN is Primary Nurse. me1 19:29 Inserted saline lock: 22 gauge in left antecubital area, using aseptic technique. me1 19:54 CT Abd/Pelvis - IV Contrast Only In Process Unspecified. EDMS 20:36 Urine collected: clean catch specimen, cheli colored. me1 20:39 Bb Add On Sent. me1 21:00 Jayesh Juarez MD is Hospitalizing Provider. radha 22:11 Patient admitted, IV remains in place. me1 Administered Medications: 18:59 Drug: Thiamine IV 100 mg IV at bolus once Route: IV; Rate: bolus; Site: right me1 antecubital; 19:30 Follow up: Response: No adverse reaction; IV Status: Completed infusion me1 18:59 Drug: NS 0.9% IV 1000 ml IV at 1 bolus Per protocol; 1000 mL bolus Route: IV; Rate: 1 me1 bolus; Site: right antecubital; 20:38 Follow up: Response: No adverse reaction; IV Status: Completed infusion; IV Intake: me1 1000ml 18:59 Drug: Ondansetron IVP 8 mg IVP once; over 2 minutes Route: IVP; Site: right antecubital;me1 19:30 Follow up: Response: No adverse reaction; Nausea is decreased me1 19:00 Drug: Ativan IVP 2 mg IVP once Route: IVP; Site: right antecubital; me1 19:30 Follow up: Response: No adverse reaction; Anxiety decreased me1 19:12 Drug: Pantoprazole IVP 80 mg IVP once Route: IVP; Site: right antecubital; me1 19:29 Follow up: Response: No adverse reaction me1 22:10 Follow up: Response: No adverse reaction me1 19:12 Drug: Banana Bag - (Multivitamin IV 1 amp, NS 0.9% IV 1000 ml, Thiamine IV 100 mg, me1 foLIC Acid IVPB 1 mg) IV at 500 ml/hr once Route: IV; Rate: 500 ml/hr; Site: right antecubital; 21:35 Follow up: IV Status: Completed infusion; IV Intake: 1000ml vc1 19:12 Drug: Phytonadione Sub-Q 10 mg Sub-Q once Route: Sub-Q; Site: right upper abdomen; me1 19:30 Follow up: Response: No adverse reaction me1 19:29 Drug: Pantoprazole IV 8 mg/hr IV at 25 ml/hr continuous; (Standard dilution is 80 mg in me1 250 mL NS) Route: IV; Rate: 25 ml/hr; Site: left antecubital; 22:10 Follow up: IV Status: Infusion continued upon admission me1 21:34 Drug: Magnesium Sulfate IVPB 2 grams IVPB once over 1 hrs Route: IVPB; Infused Over: 1 vc1 hrs; Site: left antecubital; 22:10 Follow up: IV Status: Infusion continued upon admission me1 21:34 Drug: Potassium Chloride IV 20 mEq IV at per protocol once; administer over 1-2 hours vc1 Route: IV; Rate: per protocol; Site: left antecubital; 22:10 Follow up: IV Status: Infusion continued upon admission me1 21:34 Drug: NS 0.9% with KCl IV 20 mEq/L 1000 ml IV at 125 ml/hr continuous Route: IV; Rate: vc1 125 ml/hr; Site: right antecubital; 22:09 Follow up: IV Status: Infusion continued upon admission me1 21:34 Drug: Labetalol PO 100 mg PO once Route: PO; vc1 21:55 Follow up: Response: No adverse reaction vc1 21:55 Drug: Ativan IVP 1 mg IVP once; prn anxiety Route: IVP; Site: right antecubital; vc1 22:09 Follow up: Response: No adverse reaction; Anxiety decreased me1 Medication: 22:11 VIS not applicable for this client. me1 Intake: 20:38 IV: 1000ml; Total: 1000ml. me1 21:35 IV: 1000ml; Total: 2000ml. vc1 Outcome: 21:01 Decision to Hospitalize by Provider. radha 22:11 Admitted to Tele accompanied by tech, room 406, with chart, Report called to faxed me1 report. Called to confirm receipt of fax and no one answered. 22:11 Condition: stable 22:11 Instructed on the need for admit, 22:28 Patient left the ED. me1 Signatures: Dispatcher [employer] Domenico Cardona MD MD cha Prokisch, Amanda RN RN gail3 Perez Christy RN RN as6 Ayesha Monson RN RN vc1 Roxane Pritchett RN RN me1 Kita Cody mg5
[2023-06-26] MEDS ORDERED: LABETALOL HCL 100 MG TAB ONE (21:20)
[2023-06-26] MEDS ORDERED: KCL 20 MEQ/100 mL IVPB 100 ML IV ONE (21:21)
[2023-06-26] MEDS ORDERED: NS KCL 20MEQ 1,000 ML IV ONE (21:21)
[2023-06-26] MEDS ORDERED: Magnesium Sulfate 2gm IVPB 2 G/50 ML BAG IV ONE (21:21)
--- NOTE | 2023-06-26 21:46 | P.HP ---
Certification for Inpatient Patient admitted to: Inpatient With expected LOS: >2 Midnights Practitioner: I am a practitioner with admitting privileges, knowledge of patient current condition, hospital course, and medical plan of care. Services: Services provided to patient in accordance with Admission requirements found in Title 42 Section 412.3 of the Code of Federal Regulations Patient History Date of Service: 06/27/23 Reason for admission: Intractable Nausea and Vomiting History of Present Illness: 42-year-old male with a past medical history of alcohol abuse and hypertension who was brought to ER with intractable nausea and vomiting which has been going on for the last 2 days. He has not been able to tolerate anything p.o. No fever or chills. Denies any chest pain or shortness of breath. Denies any diarrhea No sick contacts He has a history of alcohol abuse and had a similar episode previously. He stopped using alcohol at that time and got better. Recently he had his got diagnosed with cancer and started having alcohol abuse again. 2 days ago he started having intractable nausea and vomiting. Associated with some abdominal pain in epigastric region. Intermittent. At the time of interview is 4 out of 10 in severity. Initially the vomiting was bilious. Occasional episodes of coffee-ground emesis. Denies any melena. Patient was assessed in the ER and is admitted for further management of intractable nausea and vomiting and alcohol abuse Allergies No Known Allergies Allergy (Verified 11/17/18 22:07) Home Medications: NK [No Home Meds] 06/27/23 - Past Medical/Surgical History Diabetic: No Past Medical History: Reviewed- Non-Contributory Past Surgical History: Reviewed- Non-Contributory -: hernia repair -: back sx -: pre appendecitis but no surgery done - Family History Family History: Reviewed- Non-Contributory - Family History Mother Notes: Chronic low BP Father Notes: Heart Attack - Social History Smoking Status: Never smoker Alcohol use: Yes CD- Drugs: No Caffeine use: Yes Review of Systems 10-point ROS is otherwise unremarkable Physical Examination - Vital Signs Temperature: 98.4 F Blood Pressure: 118/78 Pulse: 78 Respirations: 18 Pulse Ox (%): 94 - Physical Exam General: Alert, In no apparent distress, Oriented x3 HEENT: Atraumatic, Normocephalic Neck: Supple, JVD not distended Respiratory: Clear to auscultation bilaterally, Normal air movement Cardiovascular: Regular rate/rhythm, Normal S1 S2 Capillary refill: <2 Seconds Gastrointestinal: Soft and benign, W/out hepatosplenomegaly Musculoskeletal: No clubbing, No swelling Integumentary: No rashes, No tenderness/swelling Neurological: Normal speech, Normal strength at 5/5 x4 extr, Cranial nerves 3-12 intact, Normal reflexes 2+ Lymphatics: No axilla or inguinal lymphadenopathy - Studies Laboratory Data (last 24 hrs) 06/26/23 06/26/23 06/26/23 18:33 18:33 18:33 WBC 9.20 Hgb 16.6 Hct 46.9 Plt Count 163 PT 10.6 INR 0.96 APTT 30.4 Sodium 131 L Potassium 3.1 L BUN 8 Creatinine 0.86 Glucose 123 H Magnesium 1.7 Total Bilirubin 2.4 H AST 96 H ALT 114 H Alkaline Phosphatase 127 H Lipase 103 H Assessment and Plan - Problems (Diagnosis) (1) Intractable nausea and vomiting Current Visit: Yes Status: Acute (2) Alcohol abuse Current Visit: Yes Status: Acute Plan: Intractable nausea and vomiting IV hydration Zofran as needed Monitor closely Alcohol abuse Advised about alcohol cessation offered measures Will start on banana bag Ativan as needed CIWA protocol Gastritis induced by alcohol Possible upper GI bleed Started on PPI Monitor H&H closely Transfuse as needed Hypokalemia Hyponatremia Hypophosphatemia Electrolytes monitor and replace accordingly Elevated LFTs Possibly due to alcohol abuse Advise cessation Monitor LFTs in a.m. CT abdomen pelvis consistent with fatty liver INR normal Ammonia level not elevated Hypertension Will keep n.p.o. for now Started hydralazine as needed GI/DVT prophylaxis Advanced directive full code Discharge Plan: Home Plan to discharge in: Greater than 2 days - Advance Directives Does patient have a Living Will: No Does patient have a Durable POA for Healthcare: No - Code Status/Comfort Care Code Status: Full Code Time Spent Managing Pts Care (In Minutes): 48
[2023-06-26] MEDS: NA CHLORIDE 0.9% 1,000 ML IV SCH (22:00)
[2023-06-26 22:28] LABS: Calcium Oxalate Crystals- Ur Few /HPF (None Seen); Sqamous Epithelial <5 /HPF (None Seen); Urine Bacteria None Seen /HPF (<20); Urine Bilirubin 1+ (Negative); Urine Blood 1+ (Negative); Urine Clarity Clear (Clear); Urine Color Light-Orange (Yellow); Urine Culture Reflex Order NOT NEEDED; Urine Glucose NEGATIVE (Negative); Urine Ketones 4+ (Over) (Negative); Urine Microscopic Reflex YN ORDER UMIC; Urine Mucus 3+ /HPF (None Seen); Urine Nitrite NEGATIVE (Negative); Urine Protein 2+ (Negative); Urine Urobilinogen 2+ (Normal); Urine WBC <5 /HPF (<5); Urine pH 6.5 (5.0-7.0)
[2023-06-26 22:33] LABS: Barbiturates NEGATIVE (NEGATIVE); Benzodiazepines NEGATIVE (NEGATIVE); Cocaine NEGATIVE (NEGATIVE); METHAMPHETAM NEGATIVE (NEGATIVE); Methadone NEGATIVE (NEGATIVE); Opiates NEGATIVE (NEGATIVE); Phencyclidine NEGATIVE (NEGATIVE); THC Cannibis NEGATIVE (NEGATIVE)
[2023-06-26 22:43] LABS: Specific Gravity > 1.030 (1.005-1.030)
[2023-06-26 23:20] VITALS: BMI 27.5
[2023-06-26] MEDS: FOLIC ACID 1 MG, MULTIVITAMINS INJ 10 ML, THIAMINE HCL 100 MG in NA CHLORIDE 0.9% 1,000 ML IV ONE (23:28)
[2023-06-26] MEDS ORDERED: SODIUM CHLORIDE 0.9% 10ML INJ IV PRN (23:28)
[2023-06-26] MEDS ORDERED: LORazepam 2 MG/ML VIAL IV PRN (23:28)
[2023-06-26] MEDS ORDERED: NA CHLORIDE 0.9% 1,000 ML ONE (23:56)
[2023-06-27] MEDS: NICOTINE 14 MG/PAT TD SCH (00:06)
[2023-06-27] MEDS: PANTOPRAZOLE 40 MG INJ IVP SCH (00:07)
[2023-06-27] MEDS: ACETAMINOPHEN 325 MG TABLET PO PRN (01:23)
[2023-06-27 03:39] LABS: Absolute Basophils 0.1 K/uL (0-0.5); Absolute Eosinophils 0.1 K/uL (0-0.5); Absolute Lymphocytes (CBC) 2.8 K/uL (0.7-4.9); Absolute Monocytes 0.7 K/uL (0.1-1.3); Absolute Neutrophil 4.5 K/uL (1.8-8.0); Basophils % 0.6 % (0-1.3); Eosinophils % 1.3 % (0-4.4); Hematocrit 40.2 % (39.6-49.0); Hemoglobin 14.2 g/dL (13.6-17.9); Lymphocytes % 34.7 % (15.3-44.8); MCH 35.1 pg (27.0-35.0); MCHC 35.3 g/dL (32.0-36.0); MCV 99.6 fL (80-100); MPV 7.6 fL (7.6-11.3); Monocytes % 8.1 % (3.3-12.3); Neutrophils % 55.3 % (41.7-73.7); Nucleated Red Blood Cells % 0.2 % (0-0); Platelets 138 thou/uL (152-406); RBC Red Blood Cell Count 4.03 M/uL (4.33-5.43); Red Cell Distribution Width 15.4 % (12.1-15.2)
[2023-06-27 04:03] LABS: Magnesium 2.3 mg/dL (1.6-2.4)
[2023-06-27 04:04] LABS: Albumin 3.1 g/dL (3.4-5.0); Anion Gap 10.4 mEq/L (5.0-15.0); Bilirubin Total 1.9 mg/dL (0.2-1.0); Globulin 3.1 g/dL (2.3-3.5); Potassium 3.4 mEq/L (3.5-5.1); Protein, Total 6.2 g/dL (6.4-8.2)
[2023-06-27 04:11] LABS: Phosphorus 1.4 mg/dL (2.5-4.9)
[2023-06-27] MEDS: MORPHINE 2 MG/ML SYR IV PRN (04:22)
[2023-06-27] MEDS: ONDANSETRON 4 MG/2 ML VIAL IV PRN (04:23)
[2023-06-27] MEDS ORDERED: HYDRALAZINE HCL 20 MG/ML VIAL IV PRN (05:11)
[2023-06-27] MEDS: POTASSIUM PHOS IN 0.9 % NACL 15 MMOL/250 ML BAG IV ONE (08:19)
[2023-06-27] MEDS: HYDROCODONE/APAP 10/325 TAB PO PRN (08:19)
[2023-06-27] MEDS: ENOXAPARIN 40 MG/0.4 ML SQ SCH (08:21)
[2023-06-27] MEDS: POTASSIUM 25 MEQ EFFERV TAB PO ONE ×2 (08:21→21:52)
--- NOTE | 2023-06-27 13:08 | EKG ---
Test Date: 2023-06-26 Test Time: 18:45:24 [employer] Retirement: [facility] MEASUREMENT RESULTS: Intervals: Rate: 93 CT: 140 QRSD: 92 QT: 454 QTc: 564 [place]: P: 81 CT: 140 QRS: 14 T: 78 INTERPRETIVE STATEMENTS: Normal sinus rhythm Biatrial enlargement Incomplete right bundle branch block Cannot rule out Anterior infarct, age undetermined Prolonged QT Abnormal ECG No previous ECG available for comparison Electronically Signed On 06-27-23 13:05:38 CDT by Varun Mcleod
[2023-06-27] MEDS: MORPHINE 4 MG/ML SYR IV PRN (14:11)
--- NOTE | 2023-06-27 14:18 | P.PN ---
Subjective Date of Service: 06/27/23 Chief Complaint: Intractable Nausea and Vomiting Patient is complaining of epigastric pain. He states the nausea is better and wants to try clear liquid diet. No signs of alcohol withdrawal since admission. Physical Examination - Vital Signs Temperature: 97.4 F Blood Pressure: 142/88 Pulse: 75 Respirations: 17 Pulse Ox (%): 95 - Studies Laboratory Data (last 24 hrs) 06/26/23 06/26/23 06/26/23 18:33 18:33 18:33 WBC 9.20 Hgb 16.6 Hct 46.9 Plt Count 163 PT 10.6 INR 0.96 APTT 30.4 Sodium 131 L Potassium 3.1 L BUN 8 Creatinine 0.86 Glucose 123 H Magnesium 1.7 Total Bilirubin 2.4 H AST 96 H ALT 114 H Alkaline Phosphatase 127 H Lipase 103 H Assessment And Plan - Plan Physical Exam General: Alert, In no apparent distress, Oriented x3 Respiratory: Clear to auscultation bilaterally, Normal air movement Cardiovascular: Regular rate/rhythm, Normal S1 S2 Gastrointestinal: Soft and benign, W/out hepatosplenomegaly Musculoskeletal: No clubbing, No swelling Integumentary: No rashes, No tenderness/swelling Neurological: Normal speech, Normal strength at 5/5 x4 extr, Cranial nerves 3-12 intact, Normal reflexes 2+ Diagnosis Intractable nausea and vomiting Alcohol abuse GI bleed Plan Intractable nausea and vomiting GI bleed Alcohol gastritis Elevated LFT Patient reported coffee-ground emesis followed by bright red blood stained vomitus. Associated pain with swallowing Suspected alcohol gastritis versus peptic ulcer disease. Possible Francie-Hurtado tear Continue IV hydration IV Protonix Added sucralfate due to esophageal pain. GI consulted, I spoke to Dr. Mathur who is considering EGD tomorrow. Stable hemoglobin, monitor H&H and transfuse as needed Zofran as needed. Trial of clear liquid diet Monitor closely Alcohol abuse Patient reports daily alcohol use and prior history of alcohol withdrawal Continue IV banana bag CIWA protocol with Ativan Hypokalemia Hyponatremia Hypophosphatemia Monitor electrolytes and replace accordingly Hypertension Monitor BP and start antihypertensives as needed Hydralazine as needed for BP spikes. DVT prophylaxis: SCD Advanced directive: full code
[2023-06-27] MEDS: SUCRALFATE 1GM/10ML UCUP PO SCH (17:51)
[2023-06-28 04:01] LABS: Absolute Eosinophils 0.2 K/uL (0-0.5); Absolute Lymphocytes (CBC) 2.9 K/uL (0.7-4.9); Absolute Monocytes 0.6 K/uL (0.1-1.3); Absolute Neutrophil 3.8 K/uL (1.8-8.0); Basophils % 0.5 % (0-1.3); Eosinophils % 3.1 % (0-4.4); Hematocrit 41.1 % (39.6-49.0); Hemoglobin 14.5 g/dL (13.6-17.9); Lymphocytes % 38.2 % (15.3-44.8); MCH 35.2 pg (27.0-35.0); MCHC 35.2 g/dL (32.0-36.0); MPV 8.2 fL (7.6-11.3); Monocytes % 8.3 % (3.3-12.3); Neutrophils % 49.9 % (41.7-73.7); Nucleated Red Blood Cells % 0.2 % (0-0); Platelets 136 thou/uL (152-406); RBC Red Blood Cell Count 4.11 M/uL (4.33-5.43); Red Cell Distribution Width 14.9 % (12.1-15.2)
[2023-06-28 04:19] LABS: Albumin 3.2 g/dL (3.4-5.0); Anion Gap 12.6 mEq/L (5.0-15.0); Bilirubin Total 1.5 mg/dL (0.2-1.0); Globulin 3.2 g/dL (2.3-3.5); Phosphorus 1.8 mg/dL (2.5-4.9); Potassium 3.6 mEq/L (3.5-5.1); Protein, Total 6.4 g/dL (6.4-8.2)
[2023-06-28] MEDS: POTASSIUM PHOS IN 0.9 % NACL 15 MMOL/250 ML BAG IV ONE (08:13)
[2023-06-28] MEDS ORDERED: POTASS/SODIUM PHOSPHATE 1 PKT POWD.PACK PO SCH (12:00)
[2023-06-28] MEDS ORDERED: POTASSIUM 25 MEQ EFFERV TAB PO ONE (12:00)
--- NOTE | 2023-06-28 12:16 | P.PN ---
Subjective Date of Service: 06/28/23 Chief Complaint: Intractable Nausea and Vomiting Patient states his abdominal pain is better, does not have pain with drinking anymore. No signs of alcohol withdrawal. Physical Examination - Vital Signs Temperature: 98.2 F Blood Pressure: 136/86 Pulse: 73 Respirations: 17 Pulse Ox (%): 97 Assessment And Plan - Plan Physical Exam General: Alert, NAD, Oriented x3 Respiratory: Clear to auscultation bilaterally, Normal air movement Cardiovascular: Regular rate/rhythm, Normal S1 S2 Gastrointestinal: Soft and benign, epigastric tenderness. Musculoskeletal: No clubbing, No swelling Integumentary: No rashes, No tenderness or swelling Neurological: Normal speech, no focal motor deficit. Diagnosis Intractable nausea and vomiting Alcohol abuse GI bleed Plan Intractable nausea and vomiting GI bleed Alcohol gastritis Elevated LFT Patient reported coffee-ground emesis followed by bright red blood stained vomitus. Associated pain with swallowing has improved Suspected alcohol gastritis versus peptic ulcer disease. Possible Francie-Hurtado tear Continue IV hydration Continue IV Protonix Continue sucralfate due to esophageal pain. GI Dr. Mathur input appreciated. Patient is scheduled for EGD today. Stable hemoglobin, monitor H&H and transfuse as needed Zofran as needed. Alcohol abuse Patient reports daily alcohol use and prior history of alcohol withdrawal No symptoms or signs of alcohol withdrawal. Continue IV banana bag CIWA protocol with Ativan Hypokalemia Hyponatremia Hypophosphatemia Monitor electrolytes and replace accordingly Hypertension Monitor BP and start antihypertensives as needed Hydralazine as needed for BP spikes. DVT prophylaxis: SCD Advanced directive: full code
[2023-06-28] MEDS ORDERED: propofoL 200 MG/20 ML VIAL IV ONE (12:25)
[2023-06-28] MEDS ORDERED: LIDOCAINE 1% MPF 5 ML VIAL ONE (12:25)
[2023-06-28] MEDS: EPINEPHRINE 1 MG/ML VIAL ONE (13:22)
[2023-06-28 14:25] VITALS: O2SAT 97
[2023-06-28] MEDS: FOLIC ACID 1 MG TABLET PO SCH (15:55)
[2023-06-28] MEDS: THIAMINE HCL 100 MG TABLET PO SCH (15:55)
--- NOTE | 2023-06-28 18:57 | CON ---
Date of Consultation: 06/28/2023 Reason For Consultation: Nausea, vomiting, hematemesis, coffee-ground emesis. History Of Present Illness: The patient is a 42-year-old white male who had past medical history of alcohol abuse, hypertension. The patient came to the hospital due to nausea, vomiting, and coffee-gr ound emesis. He said that he had a few episodes of coffee-ground emesis, then it turned jean bright red with hematemesis. The patient states he had a history of alcohol abuse, he had stopped for some time, he reports, but he started drinking again after his was diagnosed with the advanced vulva r cancer that has spread, it appears. The patient is depressed about this and turned to alcohol for relief. He also has some midepigastric pain. He also reports some right lower quadrant pain too. I n the ER, he said he had 4/10 midepigastric pain associated with his nausea and vomiting, initially b ilious, then turned to blood, black, and then red. Past Medical History: Significant for hypertension, alcohol abuse. Past Surgical History: Includes appendectomy, left inguinal hernia repair x2, and L5-S1 back surgery . Social History: He is , 10-year-old son. He smokes a pack a day tobacco. Positive for alcoh ol, 6 straight bourbon drinks a day. Family History: Father alive and well. Mother alive and well. Chart review says that father had a heart attack and mother has chronic low blood pressure by chart review. Review of Systems: The patient has midepigastric pain, nausea, vomiting, hematemesis, coffee-ground emesis, some right l ower quadrant pain as well. Denies any melena, hematochezia, change in bowel habits, diarrhea, const ipation, muscle aches, joint aches, backaches. Does have loose stools. Some depression and some anx iety, but no seizure, syncope, chest pain, or shortness of breath. Physical Examination: Vital Signs: Patient is 6 foot 3 inch, 220 pounds, BMI 27.5 kg/sq m. Temperature 98.2 degrees Fahre nheit, pulse of 70, respirations 17, blood pressure 136/86, O2 saturation 97%. General: He is a well-nourished, well-developed male, lying in bed, in no acute distress. HEENT: Normocephalic, atraumatic. Anicteric. Pupils equal, round, and reactive to light. Extraocu lar movements are intact. Oropharynx is clear. Neck: Supple. No masses. Respirations: Clear to auscultation bilaterally. Cardiac: Regular rate and rhythm. No gallops. Abdomen: Positive bowel sounds. Soft, nondistended. Right lower quadrant pain with some mild guard ing. No peritoneal or Torre sign. No rebound. Extremities: No clubbing, cyanosis, or edema. 2+ pulses. Neuro: Alert and oriented x3. Grossly nonfocal. 5/5 motor. Sensation to light touch. Laboratory Data: Patient has a white count of 7.5, hemoglobin 14.5, hematocrit 41.1, MCV of 100, monica telet count of 136, initially 163 on admission. Neutrophils of 50%, lymphocytes 38%, monocytes 3%, e osinophils 3%. PT of 10.6, INR of 1.0, PTT of 30.4. Patient has a sodium 135, potassium 3.6, chlori de 102, bicarb 24, BUN of 5, creatinine of 0.68, glucose 90, calcium 8.5, phosphorus 1.8, magnesium 1 .7 now up to 2.3, total bilirubin 1.5, direct bilirubin 0.8, AST of 88, ALT of 92, alkaline phosphata se 90, ammonia 18, troponin I of 4.9, B-type natriuretic peptide level mildly elevated at 173, total protein 6.4, albumin 3.2, globulin 3.2, lipase 103, normal. Urinalysis: PH 6.5, specific gravity of greater than 1.030, 4+ ketones, 1+ blood, 1+ bilirubin, 2+ urobilinogen, 11 to 20 rbc's, less than 5 white cells, less than 5 squamous epithelial cells, C-oxalate crystals, 3+ mucus, 2+ protein. Salic ylate is less than 2. Tylenol, acetaminophen less than 2.5. Alcohol less than 10. CT abdomen and p irma was largely negative. CT of abdomen and pelvis revealed prominent diffuse fatty liver, and the n he had a chest x-ray. Chest x-ray showed interstitial markings are mildly prominent, which related to chronic bronchitis, mild interstitial edema or infection. Heart size upper limit of normal. Mil dly torturous thoracic aorta. No fractures. Impression: 1.Nausea, vomiting, hematemesis, coffee-grounds emesis. Hemoglobin 14.5. We will need to investiga te with EGD. 2.Midepigastric pain. 3.Right lower quadrant pain, on exam. 4.Fatty liver on CT scan, probably secondary to alcohol abuse. 5.History of alcohol abuse; appendectomy; back surgery, L5-S1 and two left inguinal hernia surgeries . Recommendation: 1.Continue IV fluids. 2.To keep patient NPO. 3.PPI therapy. 4.EGD, urgent, I believe, today. 5.Alcoholics Anonymous or other rehab on discharge for his alcohol abuse and also DT precautions and p.r.n. benzos for possible DTs and then thiamine, folate, possible banana bag or p.o. pills for his alcohol abuse. RUSSELL/CHAN Voice ID: [id number] Report ID: [id number]
[2023-06-29] MEDS ORDERED: FOLIC ACID 1 MG TABLET PO SCH (09:00)
[2023-06-29] MEDS ORDERED: THIAMINE HCL 100 MG TABLET PO SCH (09:00)
[2023-06-29 10:02] LABS: Anion Gap 11.5 mEq/L (5.0-15.0); Potassium 3.5 mEq/L (3.5-5.1)
--- NOTE | 2023-06-29 19:18 | P.DS ---
Admission Date: 06/26/23 Discharge Date: 06/29/23 Disposition: ROUTINE DISCHARGE Discharge Condition: FAIR Reason for Admission: Intractable Nausea and Vomiting Brief History of Present Illness: 42-year-old male with a past medical history of alcohol abuse and hypertension who was brought to ER due to 2 days of intractable nausea and vomiting. Patient also complaining of epigastric pain. He reported vomiting several times, has so me coffee-ground emesis followed by fresh blood stained vomitus. He has a history of alcohol abuse and had a similar episode previously. He stopped using alcohol at that time and got better. Recently his got diagnosed with cancer and started drinking alcohol again. He denied any any melena. Patient was assessed in the ER and was admitted for further management of intractable nausea and vomiting and alcohol abuse. Hospital Course: Diagnosis Intractable nausea and vomiting Alcohol abuse GI bleed Patient was admitted to the medical floor and the following medical problems addressed: Intractable nausea and vomiting GI bleed Alcohol gastritis Elevated LFT Patient reported coffee-ground emesis followed by bright red blood stained vomitus. Associated pain with swallowing which improved with protonix and sucralfate Patient treated with supportive measures including IV hydration, and opioids for pain He was treated with IV proton GI Dr. Mathur was consulted who performed EGD and noted Francie-Hurtado tear and gastritis Hemoglobin was stable. Patient's symptoms improved with treatment. Alcohol abuse Patient reports daily alcohol use and prior history of alcohol withdrawal No symptoms or signs of alcohol withdrawal during the hospital stay. Patient did not require Ativan after admission. He was treated with banana bag IV Hypokalemia Hyponatremia Hypophosphatemia Hyponatremia improved, hypokalemia and hypophosphatemia were corrected. Elevated BP. Blood pressure was stable the rest of the hospital stay without any antihypertensives. Vital Signs/Physical Exam: Temp Pulse Resp BP Pulse Ox 98.2 F 73 17 136/86 97 06/29/23 12:06/29/23 12:06/29/23 12:06/29/23 12:06/29/23 12:02 General: Alert, In no apparent distress, Oriented x3 HEENT: Mucous membr. moist/pink Neck: Supple, JVD not distended Respiratory: Clear to auscultation bilaterally, Normal air movement Cardiovascular: No edema, Regular rate/rhythm, Normal S1 S2 Gastrointestinal: Soft and benign, Non-distended, No tenderness Musculoskeletal: No swelling, No tenderness Integumentary: No rashes, No cyanosis Neurological: Normal speech, Normal strength at 5/5 x4 extr, Cranial nerves 3-12 intact Laboratory Data at Discharge: WBC 7.50 thou/uL (4.3-10.9) 06/28/23 03:15 Hgb 14.5 g/dL (13.6-17.9) 06/28/23 03:15 Hct 41.1 % (39.6-49.0) 06/28/23 03:15 Plt Count 136 thou/uL (152-406) L 06/28/23 03:15 PT 10.6 SECONDS (9.5-12.5) 06/26/23 18:33 INR 0.96 06/26/23 18:33 APTT 30.4 SECONDS (24.3-36.9) 06/26/23 18:33 Sodium 134 mEq/L (136-145) L 06/29/23 03:08 Potassium 3.5 mEq/L (3.5-5.1) 06/29/23 03:08 BUN 6 mg/dL (7-18) L 06/29/23 03:08 Creatinine 0.78 mg/dL (0.70-1.30) 06/29/23 03:08 Glucose 106 mg/dL (74-106) 06/29/23 03:08 Phosphorus 3.0 mg/dL (2.5-4.9) 06/29/23 03:08 Magnesium 2.3 mg/dL (1.6-2.4) 06/27/23 03:23 Total Bilirubin 1.5 mg/dL (0.2-1.0) H 06/28/23 03:15 AST 88 U/L (15-37) H 06/28/23 03:15 ALT 92 U/L (16-61) H 06/28/23 03:15 Alkaline Phosphatase 90 U/L (45-117) 06/28/23 03:15 Lipase 103 U/L (13-75) H 06/26/23 18:33 Home Medications: Folic Acid 1 mg PO DAILY #30 tab 06/29/23 Hydrocodone 10/APAP 325 [[place] 10/325*] 1 tab PO Q4H PRN #10 tab 06/29/23 Pantoprazole [Protonix Tab] 40 mg PO BID #60 tab 06/29/23 Sucralfate [Carafate] 10 ml PO AC #420 ml 06/29/23 Thiamine HCl [Vitamin B-1*] 100 mg PO DAILY #30 tab 06/29/23 New Medications: Sucralfate [Carafate] 10 ml PO AC #420 ml Folic Acid 1 mg PO DAILY #30 tab Hydrocodone 10/APAP 325 [[place] 10/325*] 1 tab PO Q4H PRN #10 tab PRN Reason: Pain Scale 5-7 (Moderate) Pantoprazole [Protonix Tab] 40 mg PO BID #60 tab Thiamine HCl [Vitamin B-1*] 100 mg PO DAILY #30 tab Diet: AHA Activity: Ad kranthi Followup: NONE,NONE [Primary Care Provider] - 1-2 Weeks Time spent managing pt's care (in minutes): 33
[2023-06-30 14:37] VITALS: BP 136/86; TEMP 98.2
== END 2023-06-29 12:51 | disposition home or self-care (01) | DRG 391 ==
LOC: ER 17:58 → ERHOLD 21:40 → 4TH 22:04
PROVIDERS: ADMIT Family Medicine; ATTEND Internal Medicine
PROC: 0DB78ZX Excision of Stomach, Pylorus, Via Natural or Artificial Opening Endoscopic, Diagnostic (ICD-10-PCS; 2023-06-28)
PROC: 0DB68ZX Excision of Stomach, Via Natural or Artificial Opening Endoscopic, Diagnostic (ICD-10-PCS; principal; 2023-06-28 13:00)
DX: K29.20 Alcoholic gastritis without bleeding (principal); K22.6 Gastro-esophageal laceration-hemorrhage syndrome; E87.1 Hypo-osmolality and hyponatremia; K76.6 Portal hypertension; F10.10 Alcohol abuse, uncomplicated; E87.6 Hypokalemia; I10 Essential (primary) hypertension; K29.50 Unspecified chronic gastritis without bleeding; K70.0 Alcoholic fatty liver; F32.A Depression, unspecified; E83.39 Other disorders of phosphorus metabolism; F41.9 Anxiety disorder, unspecified; K29.30 Chronic superficial gastritis without bleeding; K31.89 Other diseases of stomach and duodenum; K21.00 Gastro-esophageal reflux disease with esophagitis, without bleeding; F17.210 Nicotine dependence, cigarettes, uncomplicated; R79.89 Other specified abnormal findings of blood chemistry; Z90.49 Acquired absence of other specified parts of digestive tract; Y90.0 Blood alcohol level of less than 20 mg/100 ml
CPT/HCPCS: 36415; 71045; 74177; 80048; 80053; 80076; 80143; 80179; 80307; 81001; 82077; 82140; 83690; 83735; 83880; 84100; 84132; 84484; 85018; 85025; 85610; 85730; 86850; 86900; 86901; 86920; 88304; 88305; 88312; 93005; 96372; 99285; C9113; J0171; J1650; J2001; J2270; J2405; J2704; J3411; J3430; J3475; J3480; J7030; J7050; Q9967

== ENCOUNTER 2024-03-03 10:49 | Emergency (ER) | payer OTHER, SELFPAY ==
[2024-03-03] MEDS ORDERED: ACETAMINOPHEN 500 MG TAB ONE (11:08)
[2024-03-03] MEDS ORDERED: NA CHLORIDE 0.9% 3,000 ML ONE (11:09)
[2024-03-03 11:30] LABS: Absolute Basophils 0.1 K/uL (0-0.5); Absolute Lymphocytes (CBC) 2.6 K/uL (0.7-4.9); Absolute Monocytes 0.5 K/uL (0.1-1.3); Absolute Neutrophil 4.3 K/uL (1.8-8.0); Basophils % 0.9 % (0-1.3); Eosinophils % 0.2 % (0-4.4); Hematocrit 45.6 % (39.6-49.0); Hemoglobin 15.9 g/dL (13.6-17.9); Lymphocytes % 34.4 % (15.3-44.8); MCH 32.8 pg (27.0-35.0); MCHC 34.8 g/dL (32.0-36.0); MPV 7.1 fL (7.6-11.3); Monocytes % 7.1 % (3.3-12.3); Neutrophils % 57.4 % (41.7-73.7); Nucleated Red Blood Cells % 0.2 % (0-0); Platelets 251 thou/uL (152-406); RBC Red Blood Cell Count 4.85 M/uL (4.33-5.43); Red Cell Distribution Width 15.5 % (12.1-15.2)
[2024-03-03 11:44] LABS: PT Prothrombin Time 10.5 SECONDS (9.4-12.5); PTT, Activated Partial Thromb 29.9 SECONDS (24.3-36.9); Protime INR 0.94
[2024-03-03 11:48] LABS: SARS-CoV-2 Antigen CONTROL BLUE LINE VIS/BG OK; SARS-CoV-2 Antigen Rapid Res Negative (Negative)
[2024-03-03 11:50] LABS: Albumin 3.6 g/dL (3.4-5.0); Albumin/Globulin Ratio 0.8 (1.1-1.8); Anion Gap 13.4 mEq/L (5.0-15.0); Bilirubin Total 0.4 mg/dL (0.2-1.0); Globulin 4.3 g/dL (2.3-3.5); Potassium 3.4 mEq/L (3.5-5.1); Protein, Total 7.9 g/dL (6.4-8.2)
--- NOTE | 2024-03-03 12:03 | RAD REPORT ---
EXAMINATION: ONE VIEW CHEST XR CLINICAL INDICATION: Male, 43 years old.,DYSPNEA TECHNIQUE: Frontal chest projection is submitted. Examination is limited by patient positioning and t echnique. COMPARISON: 06/26/2023 FINDINGS: The lungs are well inflated and clear. No pneumothorax or sizable effusion. The heart is normal in s ize. Mediastinal contours are unremarkable. IMPRESSION: No acute intrathoracic abnormalities.
[2024-03-03] MEDS ORDERED: NA CHLORIDE 0.9% 250 ML ONE (12:07)
[2024-03-03] MEDS ORDERED: AZITHROMYCIN 500 MG INJ IVPB ONE (12:07)
[2024-03-03] MEDS ORDERED: CEFTRIAXONE 2000 MG/VIAL ONE (12:07)
[2024-03-03 13:25] LABS: Calcium Oxalate Crystals- Ur Moderate /HPF (None Seen); Specific Gravity 1.024 (1.005-1.030); Sqamous Epithelial <5 /HPF (None Seen); Urine Bacteria None Seen /HPF (<20); Urine Bilirubin NEGATIVE (Negative); Urine Blood Negative (Negative); Urine Clarity Clear (Clear); Urine Color Yellow (Yellow); Urine Culture Reflex Order NOT NEEDED; Urine Glucose TRACE (Negative); Urine Ketones TRACE (Negative); Urine Microscopic Reflex YN ORDER UMIC; Urine Mucus 1+ /HPF (None Seen); Urine Nitrite NEGATIVE (Negative); Urine Protein TRACE (Negative); Urine Urobilinogen 1+ (Normal); Urine WBC <5 /HPF (<5)
[2024-03-03] MEDS ORDERED: LORazepam 2 MG/ML VIAL ONE (16:25)
--- NOTE | 2024-03-03 18:37 | ER ---
Nurse's Notes [facility] Name: Jonathon Zamudio Age: 43 yrs Sex: Male : 1980 Arrival Date: 03/03/2024 Time: 10:49 Bed 2 Private MD: Diagnosis: Alcohol abuse with intoxication Presentation: 03/03 11:04 Chief complaint: Patient states: cough and SOB that began 1 week ago. HX of alcoholism. ss Last drink was 0300. Coronavirus screen: Client denies travel out of the [place] in the last 14 days. Ebola Screen: Patient denies exposure to infectious person. Patient denies travel to an Ebola-affected area in the 21 days before illness onset. Initial Sepsis Screen: Does the patient meet any 2 criteria? RR > 20 per min. HR > 90 bpm. Yes Does the patient have a suspected source of infection? No. Patient's initial sepsis screen is negative. Risk Assessment: Do you want to hurt yourself or someone else?. Onset of symptoms was February 25, 2024. 11:04 Method Of Arrival: Ambulatory ss 11:04 Acuity: ARIANE 2 ss Historical: - Allergies: 11:06 No Known Allergies; ss - Home Meds: 11:06 None [Active]; ss - PMHx: 11:06 Alcoholism; ss - PSHx: 11:06 Appendectomy; back; ss - Immunization history:: Adult Immunizations up to date. - Infectious Disease History:: Denies. - Social history:: Smoking status: Patient reports the use of cigarette tobacco products, smokes one-half pack cigarettes per day, Patient uses alcohol, on a daily basis. patient/guardian reports chronic longstanding heavy alcohol consumption. Screenin:22 [facility] ED Fall Risk Assessment (Adult) History of falling in the last 3 months, ld1 including since admission No falls in past 3 months (0 pts) Confusion or Disorientation No (0 pts) Intoxicated or Sedated No (0 pts) Impaired Gait No (0 pts) Mobility Assist Device Used No (0 pt) Altered Elimination No (0 pt) Score/Fall Risk Level 0 - 2 = Low Risk Oriented to surroundings, Maintained a safe environment, Educated pt \T\ family on fall prevention, incl call for assistance when getting out of bed, Assessed \T\ reinforced patient's understanding of fall precautions, Provided non-skid footwear, Hourly rounding (assess needs \T\ fall precautionary measures) done, Used ambulatory aids as needed (educated on \T\ assisted with), Used gait belt as appropriate. Abuse screen: Denies threats or abuse. Denies injuries from another. Nutritional screening: No deficits noted. Tuberculosis screening: No symptoms or risk factors identified. 16:34 Clinical [place] Withdrawal Assessment for Alcohol, revised (CIWA-Ar): Paroxysmal ld1 Sweats: 1 - Barely perceptible sweating, palms moist Anxiety: 4 - Moderately anxious, guarded Tremor: 4 - Moderate when client's hands extended Total Score: < 10 Very mild withdrawal. Assessment: 11:22 General: Appears in no apparent distress. uncomfortable, Behavior is cooperative, ld1 anxious. Pain: Denies pain. Neuro: Level of Consciousness is awake, alert, obeys commands, Oriented to person, place, time, situation, Appropriate for age. Cardiovascular: Capillary refill < 3 seconds Patient's skin is warm and dry. Rhythm is sinus tachycardia. Respiratory: Reports shortness of breath at rest on exertion Airway is patent Respiratory effort is even, unlabored, Breath sounds with wheezes bilaterally. GI: Abdomen is round non-distended. : No signs and/or symptoms were reported regarding the genitourinary system. EENT: No signs and/or symptoms were reported regarding the EENT system. Derm: No signs and/or symptoms reported regarding the dermatologic system. Musculoskeletal: No signs and/or symptoms reported regarding the musculoskeletal system. 13:00 Reassessment: Patient appears in no apparent distress at this time. No changes from ld1 previously documented assessment. Patient and/or family updated on plan of care and expected duration. Pain level reassessed. 14:30 Reassessment: No changes from previously documented assessment. Patient and/or family ld1 updated on plan of care and expected duration. Pain level reassessed. Patient states symptoms have not improved. 16:00 Reassessment: Patient appears in no apparent distress at this time. No changes from ld1 previously documented assessment. Patient and/or family updated on plan of care and expected duration. Pain level reassessed. 17:25 Reassessment: Patient appears in no apparent distress at this time. No changes from ld1 previously documented assessment. Patient and/or family updated on plan of care and expected duration. Pain level reassessed. Vital Signs: 11:04 Weight 101.6 kg (M); hb 11:04 BP 158 / 110; Pulse 102; Resp 24; Temp 98.1(O); Pulse Ox 97% on R/A; Weight 99.79 kg; ss Height 6 ft. 3 in. ; Pain 0/10; 11:22 Pulse 92; Resp 22; Pulse Ox 100% on R/A; ld1 12:36 BP 166 / 99; Pulse 94; Resp 24; Pulse Ox 99% on R/A; ld1 13:00 BP 180 / 97; Pulse 100; Resp 21; Pulse Ox 99% on R/A; ld1 14:13 BP 171 / 99; Pulse 113; Resp 22; Pulse Ox 95% on R/A; ld1 16:01 BP 174 / 98; Pulse 89; Resp 21; Pulse Ox 95% on R/A; ld1 16:35 BP 179 / 94; Pulse 88; Resp 18; Pulse Ox 97% on R/A; ld1 17:07 BP 174 / 104; Pulse 92; Resp 18; Pulse Ox 96% on R/A; ld1 11:04 Body Mass Index 27.50 (101.60 kg, 190.5 cm) ss 11:04 Pain Scale: Adult ss ED Course: 10:51 Patient arrived in ED. mr 10:52 Wilber Tobin MD is Attending Physician. ec2 10:54 Attending Physician role handed off by Wilber Tobin MD gb1 10:54 Kaley Burger MD is Attending Physician. gb1 10:58 Elizabeth Mendez, MARTY is Primary Nurse. ld1 11:00 First set of blood cultures drawn by me. zm 11:06 Triage completed. ss 11:06 EKG done, by ED staff, reviewed by Kaley Burger MD. hb 11:06 Arm band placed on right wrist. ss 11:15 Initial lab(s) drawn, by me, sent to lab. Inserted saline lock: 20 gauge in left zm antecubital area, using aseptic technique. Blood collected. Flushed with 10 mL NS. 11:15 Second set of blood cultures drawn by id. zm 11:20 Strep Sent. ld1 11:20 Flu Sent. ld1 11:20 SARS RAPID Sent. ld1 11:21 Inserted saline lock: 18 gauge in right antecubital area, using aseptic technique. hb Flushed with 10 mL NS. 11:22 Ethanol Sent. zm 11:22 Blood Culture Adult (2) Sent. zm 11:22 CBC with Diff Sent. zm 11:22 CMP Sent. zm 11:22 Lactate w/ 2H reflex if indic. Sent. zm 11:22 Protime (+inr) Sent. zm 11:22 Ptt, Activated Sent. zm 11:22 No provider procedures requiring assistance completed. ld1 11:22 Patient has correct armband on for positive identification. Placed in gown. Bed in low ld1 position. Call light in reach. Side rails up X2. monitor technician on. Pulse ox on. NIBP on. Door closed. Noise minimized. 12:00 Chest Single View XRAY In Process Unspecified. EDMS 18:55 IV discontinued, intact, bleeding controlled, No redness/swelling at site. ld1 Administered Medications: 11:05 Drug: Acetaminophen PO 1000 mg PO once Route: PO; ld1 11:05 Drug: NS 0.9% IV (30 ml/kg) 30 ml/kg IV at bolus once; Sepsis Protocol; to be given as ld1 a bolus over 90 minutes Route: IV; Rate: bolus; Site: left antecubital; 12:14 Drug: Rocephin IV 2 grams IV at bolus once; Given slow IV push per pharmarcy ld1 instructions Route: IV; Rate: bolus; Site: left antecubital; 12:14 Drug: AZITHromycin IVPB 500 mg IVPB once over 1 hrs; (mix in 250 mL NS) Route: IVPB; ld1 Infused Over: 1 hrs; Site: right antecubital; 16:26 Drug: Ativan IVP 1 mg IVP once Route: IVP; Site: left antecubital; ld1 17:12 Follow up: Response: No adverse reaction ld1 Medication: 17:25 VIS not applicable for this client. ld1 Outcome: 18:37 Discharge ordered by . gb1 18:55 Discharged to home ambulatory, ld1 18:55 Condition: stable 18:55 Discharge instructions given to patient, Instructed on discharge instructions, follow up and referral plans. medication usage, Demonstrated understanding of instructions, follow-up care, medications, Prescriptions given X 1, 18:55 Patient left the ED. ld1 Signatures: Dispatcher [employer] EDMS Eliza Brooks, Reg Reg Ana Maria Antony, RN RN ss Joy Israel RN RN hb Mendez, Elizabeth, RN RN ld1 Mariaa Amaro Edwin, MD MD ec2 Kaley Burger MD MD gb1 Corrections: (The following items were deleted from the chart) 11:05 11:04 102.06 kg Measured; hb hb
--- NOTE | 2024-03-03 18:37 | EDPHYS ---
Physician Documentation [facility] Name: Jonathon Zamudio Age: 43 yrs Sex: Male : 1980 Arrival Date: 03/03/2024 Time: 10:49 Bed 2 Private MD: ED Physician Kaley Burger HPI: 03/03 11:07 This 43 yrs old Male presents to ER via Ambulatory with complaints of gb1 Shortness Of Breath. 11:29 This 43 yrs old Male presents to ER via Ambulatory with complaints of gb1 Shortness Of Breath. 11:29 43-year-old male was driving to work when he all of a sudden felt very weak, gb1 shaky and folic he was going to blackout while he was driving. When he pulled over to the side of the road his whole body he states felt with. Patient is a very heavy alcohol drinker. He gets up in the middle the night around 2 to 3 AM to drink alcohol. He has anywhere from 4-5 alcoholic beverages of hard liquor per day. 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 He also shared with me that his has cancer. He has been feeling fever and chills and been using [id number] cold medicines for the last 3 days. He has been coughing with shortness of breath and difficulty breathing also that started a couple days ago. His has also been having similar symptoms. He is not bringing up any mucus is just a dry cough but it hurts to cough as well.. Historical: - Allergies: 11:06 No Known Allergies; ss - Home Meds: 11:06 None [Active]; ss - PMHx: 11:06 Alcoholism; ss - PSHx: 11:06 Appendectomy; back; ss - Immunization history:: Adult Immunizations up to date. - Infectious Disease History:: Denies. - Social history:: Smoking status: Patient reports the use of cigarette tobacco products, smokes one-half pack cigarettes per day, Patient uses alcohol, on a daily basis. patient/guardian reports chronic longstanding heavy alcohol consumption. Exam: 11:29 Constitutional: This is a well developed, well nourished patient who is awake, alert, gb1 and in no acute distress. Head/Face: Normocephalic, atraumatic. Eyes: Pupils equal round and reactive to light, extra-ocular motions intact. Lids and lashes normal. Conjunctiva and sclera are non-icteric and not injected. Cornea within normal limits. Periorbital areas with no swelling, redness, or edema. ENT: Nares patent. No nasal discharge, no septal abnormalities noted. Tympanic membranes are normal and external auditory canals are clear. Oropharynx with no redness, swelling, or masses, exudates, or evidence of obstruction, uvula midline. Mucous membranes moist. Neck: Trachea midline, no thyromegaly or masses palpated, and no cervical lymphadenopathy. Supple, full range of motion without nuchal rigidity, or vertebral point tenderness. No Meningismus. Chest/axilla: Normal chest wall appearance and motion. Nontender with no deformity. No lesions are appreciated. Cardiovascular: Tachycardic rate and rhythm with a normal S1 and S2. No gallops, murmurs, or rubs. Normal PMI, no JVD. No pulse deficits. Respiratory: Patient with right-sided wheezing and decreased breath sounds auscultation and percussion. No rales auscultated.Increased work of breathing, mild retractions, no nasal flaring. Abdomen/GI: Soft, non-tender, with normal bowel sounds. No distension or tympany. No guarding or rebound. No evidence of tenderness throughout. Back: No spinal tenderness. No costovertebral tenderness. Full range of motion. Skin: Warm, dry with normal turgor. His face has an injected erythematous color, no lesions, and no evidence of cellulitis. Patient has telangiectasias on his face and upper chest. MS/ Extremity: Pulses equal, no cyanosis. Neurovascular intact. Full, normal range of motion. Neuro: Awake and alert, GCS 15, oriented to person, place, time, and situation. Cranial nerves II-XII grossly intact. Motor strength 5/5 in all extremities. Sensory grossly intact. Cerebellar exam normal. Normal gait. Vital Signs: 11:04 Weight 101.6 kg (M); hb 11:04 BP 158 / 110; Pulse 102; Resp 24; Temp 98.1(O); Pulse Ox 97% on R/A; Weight 99.79 kg; ss Height 6 ft. 3 in. ; Pain 0/10; 11:22 Pulse 92; Resp 22; Pulse Ox 100% on R/A; ld1 12:36 BP 166 / 99; Pulse 94; Resp 24; Pulse Ox 99% on R/A; ld1 13:00 BP 180 / 97; Pulse 100; Resp 21; Pulse Ox 99% on R/A; ld1 14:13 BP 171 / 99; Pulse 113; Resp 22; Pulse Ox 95% on R/A; ld1 16:01 BP 174 / 98; Pulse 89; Resp 21; Pulse Ox 95% on R/A; ld1 16:35 BP 179 / 94; Pulse 88; Resp 18; Pulse Ox 97% on R/A; ld1 17:07 BP 174 / 104; Pulse 92; Resp 18; Pulse Ox 96% on R/A; ld1 11:04 Body Mass Index 27.50 (101.60 kg, 190.5 cm) ss 11:04 Pain Scale: Adult ss MDM: 10:54 Medical Screening Exam initiated ec2 11:29 Differential diagnosis: Anxiety Reaction asthma, Bronchitis Chronic Obstructive gb1 Pulmonary Disease pneumonia, Pulmonary Embolism reactive airway disease, Sepsis Alcohol withdrawal, COVID, flu, strep pharyngitis. Data reviewed: vital signs, nurses notes, lab test result(s), cardiac enzymes, CBC, electrolytes, Flu: EKG shows diffuse non-ST nonspecific ST/T wave changes with a tachycardic rhythm at 101, junctional. Normal QTc., EKG. 18:32 ED course: 43 year old male, going through early withdrawal. Pt acutely intoxicated gb1 today, clinically improved after ativan. No COVID, flu or focal PNA. Doubt sepsis at this time. Pt given community resources for AA, counseled at bedside.. 03/03 11:03 Order name: Blood Culture Adult (2) [facility] 03/03 11:03 Order name: CBC with Diff; Complete Time: 11:50 [facility] 03/03 11:03 Order name: CMP; Complete Time: 11:51 03/03 11:03 Order name: Lactate w/ 2H reflex if indic.; Complete Time: 11:50 03/03 11:03 Order name: Protime (+inr); Complete Time: 11:50 03/03 11:03 Order name: Ptt, Activated; Complete Time: 11:50 [facility] 03/03 11:03 Order name: Urinalysis w/ reflexes; Complete Time: 13:38 gb03/03 11:03 Order name: SARS RAPID; Complete Time: 11:50 gb03/03 11:03 Order name: Flu; Complete Time: 11:50 gb03/03 11:03 Order name: Strep gb1 03/03 11:04 Order name: Ethanol; Complete Time: 11:50 gb03/03 11:51 Order name: Ghost Lactate-NO COLLECT Timer; Complete Time: 16:24 EDMS 03/03 11:51 Order name: Throat Culture EDMS 03/03 14:38 Order name: Lactate Sepsis 2 HR Follow-up; Complete Time: 16:24 EDMS 03/03 11:03 Order name: Chest Single View XRAY; Complete Time: 12:03 03/03 11:03 Order name: Accucheck; Complete Time: 11:22 03/03 11:03 Order name: Cardiac monitoring; Complete Time: 11:05 03/03 11:03 Order name: EKG - Nurse/Tech; Complete Time: 11:05 03/03 11:03 Order name: IV Saline Lock - Large Bore; Complete Time: 11:22 03/03 11:03 Order name: Labs collected and sent; Complete Time: 11:22 03/03 11:03 Order name: O2 Per Protocol; Complete Time: 11:05 03/03 11:03 Order name: O2 Sat Monitoring; Complete Time: 11:05 03/03 11:03 Order name: Vital Signs; Complete Time: 11:21 gb1 Administered Medications: 11:05 Drug: Acetaminophen PO 1000 mg PO once Route: PO; ld1 11:05 Drug: NS 0.9% IV (30 ml/kg) 30 ml/kg IV at bolus once; Sepsis Protocol; to be given as ld1 a bolus over 90 minutes Route: IV; Rate: bolus; Site: left antecubital; 12:14 Drug: Rocephin IV 2 grams IV at bolus once; Given slow IV push per pharmarcy ld1 instructions Route: IV; Rate: bolus; Site: left antecubital; 12:14 Drug: AZITHromycin IVPB 500 mg IVPB once over 1 hrs; (mix in 250 mL NS) Route: IVPB; ld1 Infused Over: 1 hrs; Site: right antecubital; 16:26 Drug: Ativan IVP 1 mg IVP once Route: IVP; Site: left antecubital; ld1 17:12 Follow up: Response: No adverse reaction ld1 Disposition Summary: 03/03/24 18:37 Discharge Ordered Notes: Location: Home gb1 Condition: Stable gb1 Problem: an ongoing problem gb1 Symptoms: have improved gb1 Diagnosis - Alcohol abuse with intoxication gb1 Followup: gb1 - With: Private Physician - When: - Reason: Recheck today's complaints Discharge Instructions: - Discharge Summary Sheet gb1 - Alcohol Intoxication, [id number] gb1 Forms: - Medication Reconciliation Form gb1 - Antibiotic Education gb1 - Prescription Opioid Use gb1 - Patient Portal Instructions gb1 - Leadership Thank You Letter gb1 Prescriptions: - chlordiazepoxide HCl 5 mg Oral capsule - take 2 capsule ORAL route every 8 to 12 hours as needed for anxiety; 30 gb1 capsule; Refills: 0, Product Selection Permitted Signatures: Dispatcher [employer] Ana Maria Funk RN RN ss Elizabeth Mendez RN RN ld1 Wilber Tobin MD MD ec2 Kaley Burger MD MD gb1 Corrections: (The following items were deleted from the chart) 11:05 11:05 ETHANOL+[id number].[email or web address].BRZ ordered. ED EDMS
[2024-03-03 19:32] VITALS: TEMP 98.1
[2024-03-03 19:40] VITALS: BP 174/104; O2SAT 96
--- NOTE | 2024-03-10 11:10 | EKG ---
Test Date: 2024-03-03 Test Time: 11:04:17 Physical Education Teacher: JUAN PABLO MEASUREMENT RESULTS: Intervals: Rate: 101 NV: 144 QRSD: 90 QT: 344 QTc: 446 [place]: P: 146 NV: 144 QRS: 157 T: 86 INTERPRETIVE STATEMENTS: Suspect arm lead reversal, interpretation assumes no reversal Unusual P axis, possible ectopic atrial tachycardia Low voltage QRS Left posterior fascicular block Nonspecific ST abnormality Abnormal ECG Compared to ECG 06/26/2023 18:45:24 Low QRS voltage now present Left posterior fascicular block now present ST (T wave) deviation now present Electronically Signed On 03-10-24 11:00:17 IT SUPPORT SPECIALIST by Miquel Morgan
== END 2024-03-03 18:55 | disposition home or self-care (01) ==
LOC: ER 10:49
DX: F10.129 Alcohol abuse with intoxication, unspecified (principal); R06.02 Shortness of breath; F17.210 Nicotine dependence, cigarettes, uncomplicated; Y90.4 Blood alcohol level of 80-99 mg/100 ml; Z11.52 Encounter for screening for COVID-19
CPT/HCPCS: 93005; 87040 ×2; 87070; 85025; 81001; 36415; 85610; 87081; 83605 ×2; 85730; 80053; 87804 ×2; 71045; 99285; 82077; 87811; J0696; J7050; J7030

== ENCOUNTER 2024-06-24 11:43 | Emergency (ER) | payer OTHER ==
[2024-06-24] MEDS ORDERED: DIAZEPAM 5 MG TABLET ONE (12:17)
[2024-06-24] MEDS ORDERED: ONDANSETRON 4 MG/2 ML VIAL ONE (12:17)
[2024-06-24] MEDS ORDERED: NA CHLORIDE 0.9% 1,000 ML ONE ×2 (12:17→13:38)
[2024-06-24] MEDS ORDERED: DIAZEPAM 10 MG/2 ML INJ SYRINGE ONE ×2 (12:28→13:37)
[2024-06-24 12:32] LABS: Absolute Basophils 0.1 K/uL (0-0.5); Absolute Lymphocytes (CBC) 3.6 K/uL (0.7-4.9); Absolute Monocytes 0.4 K/uL (0.1-1.3); Absolute Neutrophil 3.3 K/uL (1.8-8.0); Basophils % 0.9 % (0-1.3); Eosinophils % 0.6 % (0-4.4); Hemoglobin 17.4 g/dL (13.6-17.9); Lymphocytes % 48.8 % (15.3-44.8); MCH 33.3 pg (27.0-35.0); MCHC 34.7 g/dL (32.0-36.0); MCV 95.9 fL (80-100); Monocytes % 5.4 % (3.3-12.3); Neutrophils % 44.3 % (41.7-73.7); Nucleated Red Blood Cells % 0.2 % (0-0); Platelets 310 thou/uL (152-406); RBC Red Blood Cell Count 5.21 M/uL (4.33-5.43); Red Cell Distribution Width 15.8 % (12.1-15.2)
[2024-06-24 12:40] LABS: PTT, Activated Partial Thromb 31.4 SECONDS (27.2-37.4); Protime INR 0.96
[2024-06-24 13:06] LABS: ALT/SGPT 62 U/L (16-61); AST/SGOT 35 U/L (15-37); Alkaline Phosphatase 142 U/L (45-117); Anion Gap 19.9 mEq/L (5.0-15.0); BUN Blood Urea Nitrogen 7 mg/dL (7-18); Bicarbonate 16 mEq/L (21-32); Bilirubin Direct 0.2 mg/dL (0-0.2); Bilirubin Indirect, Calculated 0.3 mg/dL (0.2-0.8); Bilirubin Total 0.5 mg/dL (0.2-1.0); Globulin 4.2 g/dL (2.3-3.5); Glomerular Filtration Rate 106 ml/min (=/>90); Glucose Level 95 mg/dL (74-106); Potassium 3.9 mEq/L (3.5-5.1); Protein, Total 8.2 g/dL (6.4-8.2); Sodium Level 140 mEq/L (136-145)
[2024-06-24] MEDS ORDERED: NICOTINE 21 MG/PAT TD ONE (13:38)
--- NOTE | 2024-06-24 14:31 | EDPHYS ---
Physician Documentation [facility] Name: Jonathon Zamudio Age: 43 yrs Sex: Male : 1980 Arrival Date: 06/24/2024 Time: 11:43 Bed 16 Private MD: ED Physician Ramirez Vanegas HPI: 06/24 12:25 This 43 yrs old Male presents to ER via Ambulatory with complaints of Depression, rn mental eval. 12:25 The patient presents to the emergency department with depression. Onset: The rn symptoms/episode began/occurred 1 month(s) ago. Associated signs and symptoms: Pertinent positives; depression, Pertinent negatives: hallucinations, homicidal ideation. Severity of symptoms: At their worst the symptoms were moderate. The patient has not experienced similar symptoms in the past. Patient reports his 1 month ago, since then has been depressed, has had intermittent thoughts of hurting himself but right now denies any active plan. Patient reports came in today for symptoms of alcohol withdrawal. Last drink was just prior to arrival but not nearly as much as he normally drinks. Drinks 1/5 of vodka every day. Has had alcohol withdrawal in the past but usually drinks to get rid of his symptoms. Initially patient was interested in psychiatric help but now states he just wants help with the withdrawal and will see a psychiatrist on his own.. Historical: - Allergies: 11:53 No Known Allergies; ap3 - PMHx: 11:53 Alcoholism; ap3 - PSHx: 11:53 Appendectomy; back; ap3 - Immunization history:: Adult Immunizations up to date. - Infectious Disease History:: Denies. - Social history:: Smoking status: Patient reports the use of cigarette tobacco products, smokes one pack cigarettes per day. Patient uses alcohol, on a daily basis. - Family history:: not pertinent. - Hospitalizations: : No recent hospitalization is reported. ROS: 12:25 Constitutional: Negative for fever, chills, and weight loss, Cardiovascular: Negative rn for chest pain, palpitations, and edema, Respiratory: Negative for shortness of breath, cough, wheezing, and pleuritic chest pain, Abdomen/GI: Negative for abdominal pain, nausea, vomiting, diarrhea, and constipation, MS/Extremity: Negative for injury and deformity, Skin: Negative for injury, rash, and discoloration, Neuro: Negative for headache, weakness, numbness, tingling, and seizure, Psych: Negative for homicidal ideation, and hallucinations, Exam: 12:25 Constitutional: This is a well developed, well nourished patient who is awake, alert, rn tearful Cardiovascular: Tachycardic, regular. No pulse deficits. Respiratory: No increased work of breathing, no retractions or nasal flaring. Abdomen/GI: Soft, non-tender MS/ Extremity: Fine tremor Neuro: Ambulatory to room without assistance or difficulty 20:33 ECG was reviewed by the Attending Physician. rn Vital Signs: 11:51 BP 142 / 91; Pulse 118; Resp 19; Temp 98.7; Pulse Ox 97% on R/A; Weight 99.79 kg; ap3 Height 6 ft. 3 in. ; Pain 0/10; 12:35 BP 131 / 85; Pulse 95; Resp 18; Pulse Ox 93% on 3 lpm NC; ld1 13:18 BP 130 / 76; Pulse 92; Resp 18; Pulse Ox 98% on R/A; ld1 14:20 BP 132 / 78; Pulse 91; Resp 18; Pulse Ox 100% on R/A; ld1 11:51 Body Mass Index 27.50 (99.79 kg, 190.5 cm) ap3 11:51 Pain Scale: Adult ap3 MDM: 11:47 Medical Screening Exam initiated rn 14:28 Differential diagnosis: depression, Alcohol withdrawal, dehydration. Data reviewed: rn vital signs, nurses notes, lab test result(s), and as a result, I will discharge patient. Consideration of Admission/Observation Escalation of care including admission/observation considered. Admission and psychiatric transfer considered but patient declines. Patient declines transfer at this time, states that he will seek psychiatric help on his own. He plans on signing into rehab facility for alcohol withdrawal. Currently denies any suicidal ideations or plan. Patient states has a son that he plans to live for, he has had intermittent episodes of thinking of hurting himself while drinking and during withdrawal states but has not acted on them and does not plan to.. Counseling: I had a detailed discussion with the patient and/or guardian regarding the historical points, exam findings, and any diagnostic results supporting the discharge/admit diagnosis, lab results. 06/24 12:04 Order name: Acetaminophen; Complete Time: 13:26 rn 06/24 12:04 Order name: Basic Metabolic Panel; Complete Time: 13:06/24 12:04 Order name: CBC with Diff; Complete Time: :06/24 12:04 Order name: ETOH Level; Complete Time: :06/24 12:04 Order name: Hepatic Function; Complete Time: :06/24 12:04 Order name: PT-INR; Complete Time: :06/24 12:04 Order name: Ptt, Activated; Complete Time: :06/24 12:04 Order name: Salicylate; Complete Time: :06/24 12:04 Order name: EKG - Nurse/Tech; Complete Time: 12:06/24 12:04 Order name: IV Saline Lock; Complete Time: :06/24 12:04 Order name: Labs collected and sent; Complete Time: 12:06/24 12:04 Order name: Suicide Screening ([place]); Complete Time: 12:39 rn EC:33 Rate is 86 beats/min. Rhythm is regular. QRS [place] is Normal. [place] interval is normal. QRS rn interval is normal. QT interval is normal. No Q waves. T waves are Normal. No ST changes noted. Clinical impression: Normal ECG. Interpreted by me. Reviewed by me. Administered Medications: 12:34 Drug: NS 0.9% IV 1000 ml IV at 1000 ml once; to be given as a bolus over 60 minutes ld1 Route: IV; Rate: 1000 ml; Site: left wrist; 14:17 Follow up: Response: No adverse reaction; IV Status: Completed infusion; IV Intake: ld1 1000ml 12:34 Drug: Diazepam IVP 5 mg IVP once Route: IVP; Site: left wrist; ld1 12:40 Follow up: Response: No adverse reaction ld1 12:34 Drug: Ondansetron IVP 4 mg IVP once; over 2 minutes Route: IVP; Site: left wrist; ld1 12:40 Follow up: Response: No adverse reaction ld1 14:00 Drug: Diazepam IVP 5 mg IVP once Route: IVP; Site: left wrist; ld1 14:18 Follow up: Response: No adverse reaction ld1 14:00 Drug: NS 0.9% IV 1000 ml IV at 1000 ml once; to be given as a bolus over 60 minutes ld1 Route: IV; Rate: 1000 ml; Site: left wrist; 14:17 Drug: Nicotine Transdermal Patch 21 mg/24 hr 1 patches Transdermal once Route: ld1 Transdermal; Site: affected area; Disposition Summary: 06/24/24 14:31 Discharge Ordered Notes: Location: Home rn Problem: new rn Symptoms: have improved rn Condition: Stable rn Diagnosis - Alcohol dependence with withdrawal, uncomplicated rn Followup: rn - With: Private Physician - When: As needed - Reason: Recheck today's complaints, Re-evaluation by your physician Discharge Instructions: - Discharge Summary Sheet rn - Finding Treatment for Addiction rn - Alcohol Withdrawal Syndrome rn Forms: - Medication Reconciliation Form rn - 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 EDMS EDMS 12:05 12:05 BASIC METABOLIC PANEL+C.LAB.BRZ ordered. EDMS EDMS 12:05 12:05 CBC+H.LAB.BRZ ordered. EDMS EDMS 12:05 12:05 ETHANOL+C.LAB.BRZ ordered. EDMS EDMS 12:05 12:05 HEPATIC FUNCTION+C.LAB.BRZ ordered. EDMS EDMS 12:05 12:05 PROTIME (+INR)+COAG.LAB.BRZ ordered. EDMS EDMS 12:05 12:05 PTT, ACTIVATED+COAG.LAB.BRZ ordered. EDMS EDMS 12:05 12:05 SALICYLATE+C.LAB.BRZ ordered. EDMS EDMS 12:05 12:05 Urinalysis+U.LAB.BRZ ordered. EDMS EDMS 12:05 12:05 URINE DRUG SCREEN+UC.LAB.BRZ ordered. EDMS EDMS 12:39 12:04 Suicide Precautions ordered. rn ld1
--- NOTE | 2024-06-24 14:31 | ER ---
Nurse's Notes [facility] Name: Jonathon Zamudio Age: 43 yrs Sex: Male : 1980 Arrival Date: 06/24/2024 Time: 11:43 Bed 16 Private MD: Diagnosis: Alcohol dependence with withdrawal, uncomplicated Presentation: 06/24 11:51 Chief complaint: Patient states: he is having suicidal thoughts and has been since his ap3 passed. patient reports drinking 1/5 of vodka a day, and his last drink was approx an hour ago. patient does not have a current plan of how he would harm himself. Coronavirus screen: At this time, the client does not indicate any symptoms associated with coronavirus-19. Ebola Screen: No symptoms or risks identified at this time. Initial Sepsis Screen: Does the patient meet any 2 criteria? HR > 90 bpm. Does the patient have a suspected source of infection? No. Patient's initial sepsis screen is negative. Risk Assessment: Do you want to hurt yourself or someone else? Patient reports desire/thoughts of hurting themselves or someone else. Provider notified. Onset of symptoms is unknown. Transition of care: patient was not received from another setting of care. 11:51 Method Of Arrival: Ambulatory ap3 11:51 Acuity: [place] 2 ap3 Triage Assessment: 11:54 General: Appears distressed, Behavior is crying. Pain: Denies pain. Neuro: Level of ap3 Consciousness is awake, alert, obeys commands, Oriented to person, place, time, situation. Cardiovascular: Patient's skin is warm and dry. Respiratory: Airway is patent Respiratory effort is even, unlabored, Respiratory pattern is regular, symmetrical. Historical: - Allergies: 11:53 No Known Allergies; ap3 - PMHx: 11:53 Alcoholism; ap3 - PSHx: 11:53 Appendectomy; back; ap3 - Immunization history:: Adult Immunizations up to date. - Infectious Disease History:: Denies. - Social history:: Smoking status: Patient reports the use of cigarette tobacco products, smokes one pack cigarettes per day. Patient uses alcohol, on a daily basis. - Family history:: not pertinent. - Hospitalizations: : No recent hospitalization is reported. Screenin:54 Abuse screen: Denies threats or abuse. Nutritional screening: No deficits noted. ap3 Tuberculosis screening: No symptoms or risk factors identified. 11:55 [facility] ED Fall Risk Assessment (Adult) History of falling in the last 3 months, ld1 including since admission No falls in past 3 months (0 pts) Confusion or Disorientation No (0 pts) Intoxicated or Sedated Yes (3 pts) Impaired Gait No (0 pts) Mobility Assist Device Used No (0 pt) Altered Elimination No (0 pt) Score/Fall Risk Level 0 - 2 = Low Risk Oriented to surroundings, Hourly rounding (assess needs \\T\\ fall precautionary measures) done. Assessment: 11:55 General: Appears in no apparent distress. comfortable, Behavior is agitated, anxious, ld1 fussy, Smells of alcohol. Pain: Denies pain. Neuro: Level of Consciousness is awake, alert, obeys commands, Oriented to person, place, time, situation. 11:55 Cardiovascular: Capillary refill < 3 seconds Patient's skin is warm and dry. Rhythm is ld1 sinus rhythm. Respiratory: Airway is patent Respiratory effort is even, unlabored. GI: Abdomen is round non-distended. : No signs and/or symptoms were reported regarding the genitourinary system. EENT: No signs and/or symptoms were reported regarding the EENT system. Derm: No signs and/or symptoms reported regarding the dermatologic system. Musculoskeletal: No signs and/or symptoms reported regarding the musculoskeletal system. 12:41 Reassessment: ERP at bedside assessing patient. Patient reports drinking heavily 1/5 of ld1 vodka per day for a "long time." Pt reports drinking more heavily since last month. Pt voluntarily came to ER - denies having a plan for suicide. Reports feeling sad and has suicidal thoughts but does not have a plan and does not want to inpatient therapy. Pt wanting to get sober and needs help with withdrawal symptoms. SI precautions in place. Sitter at bedside. 13:15 Reassessment: Pt displaying signs of anxiety. Requesting to go smoke. Notified pt that ld1 is not allowed, we are a smoke free campus. Notified ERP. Pt given nicotine patch. 13:15 Reassessment: Pt requesting to leave at this time. Notified ERP. ld1 14:43 Reassessment: Pt denies SI at this time. Discharge safety plan completed. Pt reports "I ld1 feel hopeful now that I know my lab values aren't as bad as I thought they were. I feel hopeful and my friend is taking me to a rehab today, I want to stop drinking so I can be there for my son.". Neuro: Level of Consciousness is awake, alert, obeys commands, Oriented to person, place, time, situation. Cardiovascular: Capillary refill < 3 seconds Patient's skin is warm and dry. Respiratory: Airway is patent Respiratory effort is even, unlabored. Respiratory: Airway is patent Respiratory effort is even, unlabored. GI: Abdomen is round non-distended. Psych: 11:55 [place] Suicide Severity Screening: In the past month, have you wished you were ld1 or wished you could go to sleep and not wake up? Patient responds "No." "In the past month, have you actually had any thoughts of killing yourself?" Patient responds "no." "In your lifetime, have you ever done anything, started to do anything, or prepared to do anything to end your life?" Patient responds "no.". Subjective: Patient's mood is sad. Objective: Patient is cooperative, Speech is slurred. Interventions: Removed personal items and placed in bag. Searched person for dangerous items. 11:55 Safety Checks: Personal items have been removed. Door is open. Patient uses one fifth ld1 of liquor, daily. Commitment: Patient will be a voluntary commitment. Vital Signs: 11:51 BP 142 / 91; Pulse 118; Resp 19; Temp 98.7; Pulse Ox 97% on R/A; Weight 99.79 kg; ap3 Height 6 ft. 3 in. ; Pain 0/10; 12:35 BP 131 / 85; Pulse 95; Resp 18; Pulse Ox 93% on 3 lpm NC; ld1 13:18 BP 130 / 76; Pulse 92; Resp 18; Pulse Ox 98% on R/A; ld1 14:20 BP 132 / 78; Pulse 91; Resp 18; Pulse Ox 100% on R/A; ld1 11:51 Body Mass Index 27.50 (99.79 kg, 190.5 cm) ap3 11:51 Pain Scale: Adult ap3 ED Course: 11:46 Patient arrived in ED. al6 11:47 Ramirez Vanegas MD is Attending Physician. rn 11:53 Triage completed. ap3 11:54 Arm band placed on right wrist. ap3 11:55 Patient has correct armband on for positive identification. Placed in gown. Bed in low ld1 position. Call light in reach. Side rails up X2. expander on. Pulse ox on. NIBP on. Door closed. Warm blanket given. 11:55 No provider procedures requiring assistance completed. ld1 11:57 Elizabeth Mendez RN is Primary Nurse. ld1 12:35 Inserted saline lock: 20 gauge in left wrist, using aseptic technique. Blood collected. ld1 Flushed with 10 mL NS. 14:48 IV discontinued, intact, bleeding controlled, No redness/swelling at site. ld1 Administered Medications: 12:34 Drug: NS 0.9% IV 1000 ml IV at 1000 ml once; to be given as a bolus over 60 minutes ld1 Route: IV; Rate: 1000 ml; Site: left wrist; 14:17 Follow up: Response: No adverse reaction; IV Status: Completed infusion; IV Intake: ld1 1000ml 12:34 Drug: Diazepam IVP 5 mg IVP once Route: IVP; Site: left wrist; ld1 12:40 Follow up: Response: No adverse reaction ld1 12:34 Drug: Ondansetron IVP 4 mg IVP once; over 2 minutes Route: IVP; Site: left wrist; ld1 12:40 Follow up: Response: No adverse reaction ld1 14:00 Drug: Diazepam IVP 5 mg IVP once Route: IVP; Site: left wrist; ld1 14:18 Follow up: Response: No adverse reaction ld1 14:00 Drug: NS 0.9% IV 1000 ml IV at 1000 ml once; to be given as a bolus over 60 minutes ld1 Route: IV; Rate: 1000 ml; Site: left wrist; 14:17 Drug: Nicotine Transdermal Patch 21 mg/24 hr 1 patches Transdermal once Route: ld1 Transdermal; Site: affected area; Medication: 11:55 VIS not applicable for this client. ld1 Intake: 14:17 IV: 1000ml; Total: 1000ml. ld1 Outcome: 14:31 Discharge ordered by MD. gaspar 14:48 Discharged to home ld1 14:48 Condition: improved 14:48 Discharge instructions given to patient, Instructed on discharge instructions, follow up and referral plans. medication usage, Demonstrated understanding of instructions, follow-up care, medications, Prescriptions given X 1, 14:49 Patient left the ED. ld1 Signatures: Ramirez Vanegas MD MD rn Prokisch, Amanda, RN RN ap3 Elizabeth Mendez RN RN ld1 Nikia Bell6 Corrections: (The following items were deleted from the chart) 14:19 12:41 Reassessment: ERP at bedside assessing patient. Patient reports drinking heavily ld1 1/5 of vodka per day for a "long time." Pt reports drinking more heavily since last month. Pt voluntarily came to ER - denies having a plan for suicide. Reports feeling sad and has suicidal thoughts but does not have a plan and does not want to inpatient therapy. Pt wanting to get sober and needs help with withdrawal symptoms. Per ERP pt is not on suicidal watch at this time. Pt curtain open to room and laying in bed at this time. ld1
[2024-06-25 05:48] VITALS: TEMP 98.7
[2024-06-25 05:54] VITALS: BP 132/78; O2SAT 100
--- NOTE | 2024-06-25 12:36 | EKG ---
Test Date: 2024-06-24 Test Time: 12:20:44 News Broadcaster: MANISH MEASUREMENT RESULTS: Intervals: Rate: 86 DE: 132 QRSD: 86 QT: 378 QTc: 452 [place]: P: 58 DE: 132 QRS: 1 T: 81 INTERPRETIVE STATEMENTS: Normal sinus rhythm Normal ECG Compared to ECG 03/03/2024 11:04:17 Left posterior fascicular block no longer present ST (T wave) deviation no longer present Electronically Signed On 06-25-24 12:35:20 CDT by Miquel Morgan
== END 2024-06-24 14:49 | disposition home or self-care (01) ==
LOC: ER 11:43
DX: F10.239 Alcohol dependence with withdrawal, unspecified (principal); F17.210 Nicotine dependence, cigarettes, uncomplicated
CPT/HCPCS: 85025; 80048; 36415; 85610; 80076; 85730; 80143; 80179; 82077; J3360 ×2; J2405; J7030 ×2; 93005